=== PATIENT | male | born 1950 | race Caucasian/White ===

== ENCOUNTER 2017-01-18 19:01 | Emergency (ER) | payer OTHER ==
[2017-01-18] MEDS ORDERED: ROCEPHIN 1 Gm-D5w 50 ml Bag** 50 ML IV ONE ×2 (19:50→20:05)
--- NOTE | 2017-01-18 19:51 | ERPHSYRPT ---
- History of Present Illness Time Seen by Provider: 01/18/17 19:37 Source: patient Exam Limitations: no limitations Patient Subjective Stated Complaint: pt states he tripped over an electrical cord and fell on his knes and face. denies loc. Triage Nursing Assessment: pt alert and oriented, answers questions approp. pt ambulatory with steady gait noted. respirations nonlabored with lungs cta. skin pink warm and dry. small abrasions to bilat knees. abrasion to bridge of nose and lac above upper lip. lac below lt eye. abrasion to lt side of nose and to chin. 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 PT DENIES NAUSEA, VOMITING, CHEST PAIN, SHORTNESS OF AIR, ABDOMINAL PAIN, TINGLING/NUMBNESS, WEAKNESS. Allergies/Adverse Reactions: adhesive tape Adverse Reaction (Verified 01/18/17 19:43) Home Medications: Atorvastatin Calcium [Lipitor] 80 mg PO HS 09/23/15 [History] Calcium Carbonate/Vitamin D3 [Calcium 600 + D Tablet] 1 each PO HS 09/23/15 [ History] Furosemide [Lasix] 20 mg PO DAILY 09/23/15 [History] Glipizide 10 mg [Glucotrol 10 MG] 10 mg PO BID 09/23/15 [History] Levothyroxine Sodium [Synthroid] 75 mcg PO DAILY 09/23/15 [History] Lisinopril [Zestril] 2.5 mg PO DAILY 09/23/15 [History] Metformin HCl 1000 mg [Glucophage 1000 MG] 500 mg PO QID 09/23/15 [History] Pantoprazole Sodium [Protonix] 40 mg PO HS 09/23/15 [History] Sitagliptin Phosphate [Januvia] 100 mg PO HS 09/23/15 [History] Tamsulosin HCl 0.4 mg [Flomax 0.4 MG] 0.4 mg PO BID 09/23/15 [History] Hydrocodone Bit/Acetaminophen [[place] 5-325 Tablet] 2 each PO Q6HPRN PRN [History] Hx Tetanus, Diphtheria Vaccination/Date Given: (unknown) Hx Influenza Vaccination/Date Given: Yes Hx Pneumococcal Vaccination/Date Given: Yes Immunizations Up to Date: Yes - Review of Systems Ears, Nose, & Throat: Other (FACIAL PAIN TODAY) Respiratory: No Dyspnea Cardiac: No Chest Pain Abdominal/Gastrointestinal: No Abdominal Pain, No Vomiting Musculoskeletal: Neck Pain (TODAY), Joint Pain (BILATERAL KNEE PAIN TODAY), No Back Pain All Other Systems: Reviewed and Negative - Past Medical History Pertinent Past Medical History: Yes Neurological History: No Pertinent History ENT History: No Pertinent History Cardiac History: No Pertinent History Respiratory History: No Pertinent History Endocrine Medical History: Diabetes Type II, Hypothyroidism Musculoskeletal History: Arthritis GI Medical History: GERD History: No Pertinent History Psycho-Social History: No Pertinent History Male Reproductive Disorders: Prostate Cancer Other Medical History: Torn left rotator cuff - Past Surgical History Past Surgical History: Yes Neuro Surgical History: No Pertinent History Cardiac: No Pertinent History Respiratory: No Pertinent History Gastrointestinal: Appendectomy Genitourinary: No Pertinent History Musculoskeletal: Orthopedic Surgery Male Surgical History: No Pertinent History Other Surgical History: tonsillectomy. Right arm tumor removal. finger surgery - Social History Smoking Status: Never smoker Exposure to second hand smoke: Yes Drug Use: none Patient Lives Alone: Yes Significant Family History: no pertinent family hx - Nursing Vital Signs Nursing Vital Signs: Initial Vital Signs Temperature 97.9 F Temperature Source Oral Pulse Rate 78 Respiratory Rate 18 Blood Pressure [] 134/70 Pain Intensity 2 - Kenneth Coma Score Best Eye Response (Kenneth): (4) open spontaneously Best Verbal Response (Kenneth): (5) oriented Best Motor Response ([place]): (6) obeys commands Kenneth Total: 15 - Physical Exam General Appearance: alert Head Injury: lacerations (1 CM VERTICAL LACERATION TO LEFT OF MIDLINE BELOW NOSE ; ABRASION TO NASAL BRIDGE AND BELOW LEFT EYE; LEFT PERIORBITAL HEMATOMA.) Eye Exam: PERRL/EOMI ENT Exam: airway nml, hearing grossly normal, No clear fluid (ears), No clear fluid (nose) Neck Exam: trachea midline, tenderness (MILD POSTERIOR TENDERNESS) Respiratory/Chest Exam: normal breath sounds, No chest tenderness Cardiovascular Exam: normal heart sounds Gastrointestinal Exam: soft, normal bowel sounds, No tenderness Back Exam: normal range of motion, No vertebral tenderness Extremity Exam: normal range of motion, tenderness (MILD TENDERNESS OVER ABRASIONS OF BOTH KNEES WITH MILD EDEMA RIGHT > LEFT.) Peripheral Pulses: dorsalis-pedis (R): 2+, dorsalis-pedis (L): 2+ Neurologic Exam: alert, cooperative, sensation nml, No motor deficits, No slurred speech SpO2 Interpretation: normal SpO2: 97 Oxygen Delivery: Room Air Procedures - Laceration/Wound Repair Face Wound Location: face Wound Length (cm): 1 Wound's Depth, Shape: superficial Wound Explored: clean Irrigated: No (WASHED WITH STERILE WATER) Hibiclens Prep: Yes Anesthesia: 1% Lidocaine Volume Anesthetic (ccs): 1 Wound Repaired With: sutures Suture Size/Type: 5-0, prolene Number of Sutures: 3 Layer Closure?: No - Course Nursing assessment & vital signs reviewed: Yes - Radiology Exams Right Knee X-ray Interpretation: Interpreted by me, No Fracture Left Knee X-ray Interpretation: Interpreted by me, No Fracture - CT Exams Head CT Interpretation: Discussed w/radiologist (NEGATIVE CT HEAD.) Cervical Spine CT Interpretation: Discussed w/radiologist (STABLE NORMAL CT C-SPINE COMPARED TO 05/09/12.) Maxillofacial Bones CT Interpretation: Discussed w/radiologist (NEGATIVE CT FACIAL BONE. VERY MINIMAL ETHMOID SINUS DISEASE.) Ordered Tests: Active Orders 24 hr Category Date Time Status IV Insertion STAT Care 01/18/17 19:49 Active CERVICAL SPINE WO CONTRAST [CT] Stat Exams 01/18/17 19:47 Taken FACIAL BONES WO CONTRAST [CT] Stat Exams 01/18/17 19:47 Taken HEAD WITHOUT CONTRAST [CT] Stat Exams 01/18/17 19:47 Taken KNEE (3 VIEWS) Stat Exams 01/18/17 19:47 Taken KNEE (3 VIEWS) Stat Exams 01/18/17 19:48 Taken AMYLASE Stat Lab 01/18/17 20:03 Completed CBC W DIFF Stat Lab 01/18/17 20:03 Completed CMP Stat Lab 01/18/17 20:03 Completed LIPASE Stat Lab 01/18/17 20:03 Completed UA Stat Lab 01/18/17 19:49 Ordered Medication Summary Generic Name Dose Route Start Last Admin Trade Name Freq PRN Reason Stop Dose Admin Sodium Chloride 1,000 mls @ 100 mls/hr 01/18/17 20:00 01/18/17 20:06 Sodium Chloride 0.9% 1000 Ml IV 02/17/17 19:59 100 mls/hr .Q10H TRACY Administration Sodium Chloride 1,000 mls @ 999 mls/hr 01/18/17 21:38 01/18/17 21:49 Sodium Chloride 0.9% 1000 Ml IV 01/18/17 22:38 999 mls/hr .Q1H1M STA Administration Discontinued Medications Generic Name Dose Route Start Last Admin Trade Name Amy PRN Reason Stop Dose Admin Ceftriaxone Sodium/Dextrose 50 mls @ 100 mls/hr 01/18/17 19:50 01/18/17 20:06 Rocephin 1 Gm-D5w 50 Ml Bag IV 01/18/17 20:19 100 mls/hr STAT ONE Administration Sodium Chloride Confirm 01/18/17 20:05 Sodium Chloride 0.9% 1000 Ml Administered 01/18/17 20:06 Dose 1,000 mls @ ud .ROUTE .STK-MED ONE Ceftriaxone Sodium/Dextrose Confirm 01/18/17 20:05 Rocephin 1 Gm-D5w 50 Ml Bag Administered 01/18/17 20:06 Dose 50 mls @ ud IV .STK-MED ONE Lidocaine HCl Confirm 01/18/17 21:52 Xylocaine 1% Hcl 20 Ml Mdv Administered 01/18/17 21:53 Dose 5 ml .ROUTE .STK-MED ONE Lidocaine HCl 5 ml 01/18/17 22:07 01/18/17 22:08 Xylocaine 1% Hcl 20 Ml Mdv IJ 01/18/17 22:08 5 ml STAT ONE Administration Lab/Rad Data: Laboratory Result Diagrams 01/18/17 20:03 01/18/17 20:03 Laboratory Results 01/18/17 01/18/17 Range/Units 20:03 20:03 WBC 10.3 (4.0-10.5) K/mm3 RBC 4.41 (4.1-5.6) M/mm3 Hgb 11.1 L (12.5-18.0) gm/dl Hct 34.8 L (42-50) % MCV 78.9 (78-100) fl MCH 25.1 L (26-32) pg MCHC 31.9 L (32-36) g/dl RDW 16.4 H (11.5-14.0) % Plt Count 309 (150-450) K/mm3 MPV 10.0 H (6-9.5) fl Gran % 77.9 H (36.0-66.0) % Lymphocytes % 12.3 L (24.0-44.0) % Monocytes % 8.2 (0.0-12.0) % Eosinophils % 1.2 (0.00-5.0) % Basophils % 0.4 (0.0-0.4) % Basophils # 0.04 (0-0.4) Sodium 141 (136-145) mEq/L Potassium 4.2 (3.5-5.1) mEq/L Chloride 105 (98-107) mEq/L Carbon Dioxide 25.1 (21-32) mEq/L Anion Gap 15.4 H (5-15) MEQ/L BUN 28 H (9-20) mg/dL Creatinine 1.45 H (0.55-1.30) mg/dl Estimated GFR 52 ML/MIN Glucose 187 H (70-110) MG/DL Calcium 9.2 (8.5-10.1) mg/dL Total Bilirubin 0.2 (0.2-1.0) mg/dL AST 13 L (15-37) U/L ALT 23 (12-78) U/L Alkaline Phosphatase 64 (46-116) U/L Serum Total Protein 6.6 (6.4-8.2) gm/dL Albumin 3.3 L (3.4-5.0) g/dL Amylase 64 (25-115) U/L Lipase 336 (73-393) U/L - Departure Time of Disposition: 22:16 Departure Disposition: Home Clinical Impression: FALL, FACIAL ABRASIONS/CONTUSION, 1 CM LACERATION OF FACE, BILATERAL KNEE CONTUSIONS, CERVICAL STRAIN, DM, HYPOTHYROIDISM, ARTHRITIS, GERD Condition: Fair Critical Care Time: No Referrals: JENNIFER LOPEZ [Primary Care Provider] - Instructions: Prevent Falls, Contusion, Care for a Surgical Wound, Whiplash Additional Instructions: FOLLOW UP WITH PRIVATE DOCTOR TOMORROW. KEEP CLEAN & DRY. HAVE SUTURES REMOVED IN 10 DAYS. WEAR SOFT C-COLLAR FOR 2 WEEKS ONLY WHILE AWAKE. Prescriptions: Tramadol HCl 50 mg [Ultram 50 mg] 50 mg PO Q4H PRN PRN #14 tablet PRN Reason: Pain Cephalexin Monohydrate [Keflex] 500 mg PO TID #30 capsule
[2017-01-18] MEDS ORDERED: Sodium Chloride 0.9% 1000 ML 1,000 ML IV SCH (20:00)
[2017-01-18] MEDS ORDERED: Sodium Chloride 0.9% 1000 ML 1,000 ML ONE (20:05)
[2017-01-18 20:08] LABS: BASOPHIL % 0.4 % (0.0-0.4); Eosinophil % 1.2 % (0.00-5.0); Granulocytes % 77.9 % (36.0-66.0); Lymphocytes % 12.3 % (24.0-44.0); Mean Cell Volume 78.9 fl (78-100); Monocytes % 8.2 % (0.0-12.0); Platelet Count 309 K/mm3 (150-450); Red Blood Count 4.41 M/mm3 (4.1-5.6); Red Cell Distribution Width 16.4 % (11.5-14.0); White Blood Count 10.3 K/mm3 (4.0-10.5)
[2017-01-18 20:14] LABS: Mean Corpuscular Hemoglobin 25.1 pg (26-32)
[2017-01-18 20:34] LABS: ALBUMIN 3.3 g/dL (3.4-5.0); ANION GAP 15.4 MEQ/L (5-15); BILIRUBIN,TOTAL 0.2 mg/dL (0.2-1.0); Carbon Dioxide 25.1 mEq/L (21-32); Potassium 4.2 mEq/L (3.5-5.1); Total Protein 6.6 gm/dL (6.4-8.2)
[2017-01-18] MEDS ORDERED: Sodium Chloride 0.9% 1000 ML 1,000 ML IV STA (21:38)
[2017-01-18] MEDS ORDERED: XYLOCAINE 1% HCL 20 ML MDV ONE (21:52)
[2017-01-18] MEDS ORDERED: XYLOCAINE 1% HCL 20 ML MDV IJ ONE (22:07)
[2017-01-18] MEDS ORDERED: TENIVAC VIAL IM ONE ×2 (22:17→22:20)
[2017-01-18 23:08] VITALS: BP 134/71; PULSE 79; O2SAT 98
--- NOTE | 2017-01-19 08:50 | XRAY ---
Indication: Pain following fall. Multiple contiguous axial images obtained through the head without contrast. Comparison: None Age-appropriate global atrophy. No acute intracranial hemorrhage, abnormal extra-axial fluid collection, or mass effect. Fourth ventricle is midline without hydrocephalus. Bony calvarium intact. Visualized paranasal sinuses and mastoid air cells are pneumatized and clear. Impression: No acute intracranial abnormalities. CT DI 47.12
--- NOTE | 2017-01-19 08:52 | XRAY ---
Indication: Posterior neck pain following fall. Multiple contiguous axial images obtained through the cervical spine. Sagittal and coronal reformatted images obtained. Comparison: May 09, 2012. Axial images again negative for acute fracture, suspicious bony lesions, or spinal canal stenosis. Minimal multilevel bilateral degenerative facet arthropathy. Sagittal and coronal reformatted images demonstrates normal alignment with disc spaces preserved. No acute compression fracture, subluxation, or jumped facet. Normal-appearing craniocervical junction. Visualized noncontrasted soft tissues including base of the brain and lung apices are unremarkable. Impression: Again negative CT cervical spine. CT DI 88.21
--- NOTE | 2017-01-19 08:58 | XRAY ---
Indication: Bilateral facial and nasal pain following fall. Multiple contiguous axial images obtained through the facial bones. Sagittal and coronal reformatted images obtained. Comparison: None Multiple bilateral dental amalgams produces beam artifact limiting these levels. No acute fracture, suspicious bony lesions, or radiopaque foreign body. Orbits including roof, ferraro, and floor are intact. Minimal nasal septal deviation to the left. Minimal mucosal thickening of both ethmoid sinuses. Remaining paranasal sinuses and mastoid air cells are pneumatized and clear. Remaining visualized noncontrasted soft tissues unremarkable. CT head and CT cervical spine reported separately. Impression: Minimal paranasal sinus disease. Remaining CT facial bones study is negative. CT DI 59.47
--- NOTE | 2017-01-19 09:16 | XRAY ---
Indication: Pain following fall. Comparison: None 3 views of the left knee intact with minimal medial compartment joint space narrowing and scattered vascular calcifications. No other bony, articular, or soft tissue abnormalities.
--- NOTE | 2017-01-19 09:17 | XRAY ---
Indication: Pain following fall. Comparison: None 3 views of the right knee intact with minimal medial compartment joint space narrowing, scattered vascular calcifications, and tiny spurring of the patella and tibial tuberosity. No other bony, articular, or soft tissue abnormalities.
== END 2017-01-18 23:08 | disposition home or self-care (01) ==
LOC: ED 19:01
PROC: 0HQ1XZZ Repair Face Skin, External Approach (ICD-10-PCS; principal; 2017-01-18)
DX: S01.81XA Laceration without foreign body of other part of head, initial encounter (principal); S00.81XA Abrasion of other part of head, initial encounter; S00.83XA Contusion of other part of head, initial encounter; S80.02XA Contusion of left knee, initial encounter; S80.01XA Contusion of right knee, initial encounter; S16.1XXA Strain of muscle, fascia and tendon at neck level, initial encounter; E11.9 Type 2 diabetes mellitus without complications; E03.9 Hypothyroidism, unspecified; M19.90 Unspecified osteoarthritis, unspecified site; K21.9 Gastro-esophageal reflux disease without esophagitis; W01.0XXA Fall on same level from slipping, tripping and stumbling without subsequent striking against object, initial encounter; Y99.0 Civilian activity done for income or pay
CPT/HCPCS: 12011; 36000; 36415; 70450; 70486; 72125; 73562; 80053; 82150; 83690; 85025; 90471; 90714; 96360; 96361; 99284; J0696; L0120; L0172

== ENCOUNTER 2018-11-08 09:09 | Day surgery (SDC) | payer MEDICARE, OTHER ==
[2018-11-08] MEDS ORDERED: DIPRIVAN 200 MG/20 ML IV ONE (09:10)
[2018-11-08] MEDS ORDERED: Marcaine 0.5% SDV 10 ML IJ ONE (09:10)
[2018-11-08] MEDS ORDERED: Depo-Medrol 40 MG/ML IM ONE (09:10)
--- NOTE | 2018-11-08 12:30 | XRAY ---
Indication: Left SI injection Intraoperative fluoroscopy was provided for 9 seconds. 2 digital spot images submitted for interpretation demonstrates a needle tip projecting over the inferior left SI joint. Correlate with intraoperative findings/report. Incidental partially visualized left hip arthroplasty.
--- NOTE | 2018-11-08 12:38 | XRAY ---
9 seconds fluoroscopy time in surgery for left S-I joint injection.
[2018-11-08] MEDS ORDERED: Lactated Ringers 1,000 ML IV ONE (14:46)
== END 2018-11-08 11:00 | disposition home or self-care (01) ==
LOC: SDC-PAIN 09:09
PROVIDERS: ATTEND Psychiatry & Neurology Pain Medicine
DX: M53.3 Sacrococcygeal disorders, not elsewhere classified (principal)
CPT/HCPCS: 27096; 72020; 77002; 82962; J1030; J2704; G0260

== ENCOUNTER 2020-04-09 07:58 | Day surgery (SDC) | payer MEDICARE, OTHER ==
[2020-04-09] MEDS ORDERED: Marcaine 0.5% SDV 10 ML IJ ONE (07:59)
[2020-04-09] MEDS ORDERED: Depo-Medrol 40 MG/ML IM ONE (07:59)
[2020-04-09] MEDS ORDERED: DIPRIVAN 200 MG/20 ML IV ONE (09:06)
[2020-04-09] MEDS ORDERED: Ketamine HCl 50 MG/ML ONE (09:07)
[2020-04-09] MEDS ORDERED: Lactated Ringers 1,000 ML IV ONE (15:16)
--- NOTE | 2020-04-09 16:30 | XRAY ---
9 seconds fluoroscopy time in surgery for left SI joint injection.
--- NOTE | 2020-04-12 18:43 | XRAY ---
Indication: Left SI joint injection. Intraoperative fluoroscopy was provided for 9 seconds. Frontal and lateral digital C-arm images reveal the needle tip to be in the projection of the inferior left SI joint. A small portion of a left hip arthroplasty is seen at the peripheral [id number].
== END 2020-04-09 09:53 | disposition home or self-care (01) ==
LOC: SDC-PAIN 07:58
PROVIDERS: ATTEND Psychiatry & Neurology Pain Medicine
DX: M46.1 Sacroiliitis, not elsewhere classified (principal); E11.9 Type 2 diabetes mellitus without complications; I10 Essential (primary) hypertension; Z79.899 Other long term (current) drug therapy
CPT/HCPCS: 72020; 77002; 82962; G0260; 27096; J1030; J2704

== ENCOUNTER 2020-05-21 09:03 | Day surgery (SDC) | payer MEDICARE, OTHER ==
[~2020-05-21 09:03] MED LIST: DIPRIVAN 200 MG/20 ML IV ONE; Ketamine HCl 50 MG/ML ONE
[2020-05-21] MEDS ORDERED: Marcaine 0.5% SDV 10 ML IJ ONE (09:04)
[2020-05-21] MEDS ORDERED: Depo-Medrol 40 MG/ML IM ONE (09:04)
--- NOTE | 2020-05-21 11:39 | XRAY ---
Indication: Left hip bursa injection. Intraoperative fluoroscopy was provided for 11 seconds. Single digital spot image obtained prone demonstrates needle tip just lateral to the left greater trochanter. Small amount of contrast injected for needle tip placement. Correlate with intraoperative findings/report. Incidental partially visualized left hip arthroplasty.
--- NOTE | 2020-05-21 11:41 | XRAY ---
Indication: Left SI joint injection. Intraoperative fluoroscopy was provided for 9 seconds. 2 digital spot images submitted for interpretation demonstrates posterior needle tip projecting over the inferior left SI joint. Correlate with intraoperative findings/report. Incidental partially visualized left hip arthroplasty.
--- NOTE | 2020-05-21 11:49 | XRAY ---
9 seconds fluoroscopy time in surgery for left SI joint injection.
--- NOTE | 2020-05-21 11:49 | XRAY ---
11 seconds fluoroscopy time in surgery for left greater trochanter injection.
[2020-05-21] MEDS ORDERED: Lactated Ringers 1,000 ML IV ONE (16:34)
== END 2020-05-21 10:30 | disposition home or self-care (01) ==
LOC: SDC-PAIN 09:03
PROVIDERS: ATTEND Psychiatry & Neurology Pain Medicine
DX: M46.1 Sacroiliitis, not elsewhere classified (principal); M70.62 Trochanteric bursitis, left hip; E11.9 Type 2 diabetes mellitus without complications; I10 Essential (primary) hypertension; F41.8 Other specified anxiety disorders; Z79.899 Other long term (current) drug therapy
CPT/HCPCS: 20610; 72020; 73501; 77002; 82962; G0260; 27096; J1030; J2704; Q9966

== ENCOUNTER 2020-08-11 10:23 | Day surgery (SDC) | payer MEDICARE, OTHER ==
--- NOTE | 2020-08-11 08:55 | HP ---
DATE OF SURGERY: 08/11/2020 HISTORY OF PRESENT ILLNESS: The patient is a 70 year old with persistent indurated left abdomen the last two months. Given his persistent discomfort and induration bowel mucosa, fat necrosis, lipoma or change from injections in the area, he desires excision of the area. There is a small chance it could be a hernia given location but likely could be some other subcutaneous nodule, lipoma or fat necrosis. PAST MEDICAL HISTORY: Myalgia, diabetes, hypothyroidism, arthritis, gastroesophageal reflux disease. PAST SURGICAL HISTORY: Hip replacement in the past. Tonsillectomy. Appendectomy. Prostate cancer with radiation seeds in the past. Heart cath. MEDICATIONS: Metoprolol, Jardiance, atorvastatin, Flomax, fluconazole, Lasix, Levemir, Lisinopril, metformin, NovoLog, pantoprazole, ferrous sulfate, Synthroid, vitamin B-12, vitamin D3. ALLERGIES: SENSITIVE TO MORPHINE. ADHESIVE TAPE. FAMILY HISTORY: Negative in regards to this problem. SOCIAL HISTORY: No smoking or alcohol abuse. REVIEW OF SYSTEMS: Fourteen systems reviewed. No chest pain or palpitations. Other systems negative or noncontributory as above and per preadmission questionnaire. PHYSICAL EXAMINATION: GENERAL: No acute distress. HEENT: Sclerae nonicteric. NECK: No JVD. CHEST: Equal excursion, nonlabored breathing. CVS: Regular rate and rhythm. ABDOMEN: Soft. Tender area in left abdominal wall again whether lipoma or some fat necrosis or other changes from insulin injections or whether less likely possible occult hernia is unclear. Either way given his symptoms, I feel he will benefit from exploration. EXTREMITIES: No significant edema. NEURO: Alert, oriented, moving extremities symmetrically. PSYCH: Appropriate mood and affect. IMPRESSION: Persistent indurated area left abdominal wall. He needs abdominal wall exploration, excision of nodule or lipoma possible hernia repair if identified, possible mesh. Risks and benefits or bleeding or infection, risk of hematoma or seroma formation with hernia, risk of hernia recurrence, risk of mesh infection possible removal, risk of adhesion, scar formation or obstruction. Remote risk of mesh fracture or failure if repaired with mesh possibly requiring other procedures, ongoing morbidity. He understands if there is lipoma or fat necrosis there is a possibility what we excise will not recur but he could get similar change adjacent or elsewhere on his body. General risk of anesthesia, deep venous thrombosis, pulmonary embolism, pneumonia, risk of cardiopulmonary event but not limited to. Will proceed with abdominal wall exploration, excision and biopsy of abdominal wall nodule or lipoma, possible hernia repair with possible mesh as an outpatient.
[~2020-08-11 10:23] MED LIST changes: +BRIDION 200MG/2ML IV ONE; -DIPRIVAN 200 MG/20 ML IV ONE; -Ketamine HCl 50 MG/ML ONE; +Lactated Ringers 1,000 ML IV ONE; +Sensorcaine 0.25% 10 ML ONE
[2020-08-11] MEDS ORDERED: Lactated Ringers 1,000 ML IV ONE (10:39)
[2020-08-11] MEDS ORDERED: Lactated Ringers 1,000 ML IV SCH (11:00)
[2020-08-11 11:09] LABS: BASOPHIL % 0.5 % (0.0-0.4); Basophil (Absolute #) 0.04 (0-0.4); Eosinophil % 2.5 % (0.00-5.0); Eosinophil (Absolute #) 0.21 (0-0.5); Hematocrit 40.9 % (42-50); Hemoglobin 12.9 gm/dl (12.5-18.0); Lymphocyte (Absolute #) 1.31 (1.0-4.6); Lymphocytes % 15.7 % (24.0-44.0); Mean Corpuscular Hemoglobin 26.2 pg (26-32); Mean Corpuscular Hgb Concent. 31.5 g/dl (32-36); Mean Platelet Volume 10.3 fl (7.5-11.0); Monocyte (Absolute #) 0.68 (0.0-1.3); Monocytes % 8.2 % (0.0-12.0); Neutrophil % 73.1 % (36.0-66.0); Platelet Count 307 K/mm3 (150-450); Red Blood Count 4.93 M/mm3 (4.1-5.6); Red Cell Distribution Width 16.7 % (11.5-14.0); White Blood Count 8.3 K/mm3 (4.0-10.5)
[2020-08-11 11:20] LABS: ANION GAP 11.5 MEQ/L (5-15); Calcium 9.2 mg/dL (8.4-10.2); Creatinine 1 1.43 mg/dL (0.66-1.25); EST GLOMERULAR FILTRATION RATE 52.1 ML/MIN; Potassium 4.2 mmol/L (3.5-5.1)
[2020-08-11] MEDS ORDERED: SUBLIMAZE 250 MCG/5 ML ONE (11:57)
[2020-08-11] MEDS ORDERED: DIPRIVAN 200 MG/20 ML IV ONE (11:57)
[2020-08-11] MEDS ORDERED: Zemuron 100 MG/10 ML ONE (11:57)
[2020-08-11] MEDS ORDERED: Versed 2 MG/2 ML Injection ONE (11:57)
[2020-08-11] MEDS ORDERED: Zofran 4 MG/2 ML VIAL ONE (12:04)
[2020-08-11] MEDS ORDERED: BRIDION 200MG/2ML IV ONE (12:07)
[2020-08-11] MEDS ORDERED: KEFZOL 1 GM ONE (13:15)
[2020-08-11] MEDS ORDERED: SUBLIMAZE 100 MCG/2 ML ONE (13:37)
--- NOTE | 2020-08-11 13:39 | OP ---
SURGERY DATE/TIME: 08/11/2020 1225 PREOPERATIVE DIAGNOSIS: Persistent indurated, tender abdominal wall nodule. POSTOPERATIVE DIAGNOSIS: Abdominal wall lipomatous density with area of inflammatory changes or necrosis, path pending (8 cm with margins). PROCEDURE: Abdominal wall exploration, excision and biopsy of nodule, possible umbilical herniorrhaphy. SURGEON: Dr. Kaushik Bell. ANESTHESIA: General. ESTIMATED BLOOD LOSS: Minimal. INDICATIONS: As noted above. Risks and benefits explained in detail and not limited to and consent obtained. DESCRIPTION OF PROCEDURE AND FINDINGS: The patient is taken to the operating room. The site had been marked in preoperative holding area. General anesthesia introduced. Abdomen prepped and draped in usual sterile fashion. After official time out and no disagreement with planned procedure, a transverse incision is made around the skin overlying the firm area. Dissection carried down. It appeared to be a denser lipomatous density much denser than normal subcutaneous fat surrounding the area this was dissected down deep to the fascia. There did not appear to be any evidence of any underlying hernia. The indurated area whether inflammatory changes, necrosis or hemorrhage is unclear and was sent off for pathology the area with its margin included about 8 cm, passed off for pathology. The patient was quite vascular and had several small pulsatile perforators controlled with 3-0 Vicryl suture ligature and appeared to have good hemostasis. The wound irrigated out with copious amounts of sterile saline to avoid the need for drain placement. There was a large potential space underneath here. The subcu was tacked down to level of fascia with 3-0 Vicryl. Skin closed with 4-0 Vicryl in subcuticular fashion. Steri-Strips, sterile pressure dressing and abdominal binder was given. The patient tolerated the procedure well. There were no immediate complications. There is no family here to discuss the findings with.
[2020-08-11 15:01] VITALS: BP 138/74; PULSE 88; O2SAT 96
== END 2020-08-11 14:55 | disposition home or self-care (01) ==
LOC: SDC 10:23
PROVIDERS: ATTEND Surgery
DX: D17.1 Benign lipomatous neoplasm of skin and subcutaneous tissue of trunk (principal); E11.9 Type 2 diabetes mellitus without complications; E03.9 Hypothyroidism, unspecified; K21.9 Gastro-esophageal reflux disease without esophagitis; I10 Essential (primary) hypertension; I25.10 Atherosclerotic heart disease of native coronary artery without angina pectoris; Z79.899 Other long term (current) drug therapy
CPT/HCPCS: 36415; 80048; 85025; 88305; 93005; J0690; J2250; J2405; J2704; J3010; L0625

== ENCOUNTER 2021-05-27 14:00 | Day surgery (SDC) | payer MEDICARE, OTHER | END 2021-05-27 14:15 | disposition home or self-care (01) | LOC: SDC-PAIN 14:00 | PROVIDERS: ATTEND Psychiatry & Neurology Pain Medicine | DX: Z53.09 Procedure and treatment not carried out because of other contraindication (principal); M46.1 Sacroiliitis, not elsewhere classified; E11.9 Type 2 diabetes mellitus without complications | CPT/HCPCS: 82947 ==

== ENCOUNTER 2021-06-03 14:24 | Observation (INO) | payer MEDICARE, OTHER ==
[2021-06-03] MEDS ORDERED: Sodium Chloride 0.9% 1000 ML 1,000 ML IV STA (14:51)
--- NOTE | 2021-06-03 14:57 | ERPHSYRPT ---
- History of Present Illness Time Seen by Provider: 06/03/21 14:26 Source: patient Exam Limitations: no limitations Patient Subjective Stated Complaint: C/O being dizzy, light headed, cool, clammy. States he feels like he does when his blood sugar is low. He states he is starting to feel better since laying down in bed here. Is still a little light headed. Triage Nursing Assessment: Accucheck WNL. Patient is alert and oriented. Wearing a mask upon entry to ER. No c/o chest pain or SOB. Physician History: 70 years old male with history of diabetes mellitus, hypertension, hyperlipidemia presented in the ER with chief complaint of sudden onset lightheadedness while he was sitting in the ER waiting area to have his cortisone shot for hip pain. Patient reports feeling sweaty, cold clammy and feeling as if he was going to pass out. Reports having similar symptoms in the past with hypoglycemia. On arrival in the ER his blood sugar is 113. Denies any chest pain palpitations or shortness of breath. Patient feels much better now but still weak all over without any focal weakness. Denies any blurry vision, numbness tingling or focal weakness. No speech disturbance. Timing/Duration: today, sudden, improved Severity: moderate Modifying Factors: Improves With: rest Associated Symptoms: denies symptoms Allergies/Adverse Reactions: morphine Allergy (Verified 06/03/21 14:44) unknown reaction adhesive tape Adverse Reaction (Intermediate, Verified 06/03/21 14:44) Blisters Home Medications: Atorvastatin Calcium [Lipitor] 80 mg PO HS 09/23/15 [History] Furosemide [Lasix] 20 mg PO DAILY 09/23/15 [History] Metformin HCl 1000 mg [Glucophage 1000 MG] 500 mg PO BID 09/23/15 [History] Pantoprazole Sodium [Protonix] 40 mg PO HS 09/23/15 [History] Tamsulosin HCl 0.4 mg [Flomax 0.4 MG] 0.4 mg PO BID 09/23/15 [History] lisinopriL [Zestril] 2.5 mg PO DAILY 09/23/15 [History] Aspirin 81 mg PO DAILY 02/13/20 [History] Calcium Carbonate/Vitamin D3 [Oyster Shell Calcium + D Tab] 1 each PO BID 02/13/20 [History] Cetirizine HCl 10 mg PO HS 02/13/20 [History] Empagliflozin [Jardiance] 25 mg PO HS 02/13/20 [History] Ferrous Sulfate 325 mg PO BID 02/13/20 [History] Fluticasone Propionate [Flonase Allergy Relief] 9.9 ml NS BID 02/13/20 [History] Insulin Aspart Prot/Insuln Asp [Novolog Mix 70-30 Flexpen] 20 unit SQ TIDWMEALS 02/13/20 [History] Insulin Detemir [Levemir] 40 unit SQ HS 02/13/20 [History] Levothyroxine Sodium 88 Mcg [Synthroid 88 Mcg] 100 mcg PO DAILY 02/13/20 [History] Metoprolol Tartrate 25 mg PO BID 02/13/20 [History] Cholecalciferol (Vitamin D3) [Vitamin D3] 50 mcg PO DAILY 02/20/20 [History] Cyanocobalamin (Vitamin B-12) [Vitamin B12] 2,500 mcg PO DAILY 02/20/20 [History] Oxycodone / APAP 10/325 mg [Oxycodone-Acetaminophen 10-325] 1 each PO DAILY PRN PRN 06/03/21 [History] Hx Tetanus, Diphtheria Vaccination/Date Given: (unknown) Hx Influenza Vaccination/Date Given: Yes Hx Pneumococcal Vaccination/Date Given: Yes Immunizations Up to Date: Yes Travel Risk - International Travel Have you traveled outside of the country in past 3 weeks: No - Coronavirus Screening Are you exhibiting any of the following symptoms?: No Close contact with a COVID-19 positive Pt in past 14-21 Days: No - Vaccine Status Have you recieved a Covid-19 vaccination: Yes Frog Farmer: Moderna - Vaccination Dates Date of 2cond Vaccination (if applicable): 01/29/2021 - Review of Systems Constitutional: Fatigue, Weakness Eyes: No Symptoms Ears, Nose, & Throat: No Symptoms Respiratory: No Symptoms Cardiac: No Symptoms Abdominal/Gastrointestinal: No Symptoms Genitourinary Symptoms: No Symptoms Musculoskeletal: Arthralgias Skin: No Symptoms Neurological: Dizziness Psychological: No Symptoms Endocrine: No Symptoms Hematologic/Lymphatic: No Symptoms Immunological/Allergic: No Symptoms - Past Medical History Pertinent Past Medical History: Yes Neurological History: No Pertinent History ENT History: No Pertinent History Cardiac History: Arrhythmia Respiratory History: No Pertinent History Endocrine Medical History: Diabetes Type II, Hypothyroidism Musculoskeletal History: Arthritis GI Medical History: GERD History: No Pertinent History Psycho-Social History: No Pertinent History Male Reproductive Disorders: Prostate Cancer Other Medical History: Left hip replacement 2017, heart "skips beats" - Past Surgical History Past Surgical History: Yes Neuro Surgical History: No Pertinent History Cardiac: No Pertinent History Respiratory: No Pertinent History Gastrointestinal: Appendectomy Genitourinary: No Pertinent History Musculoskeletal: Orthopedic Surgery Male Surgical History: No Pertinent History Other Surgical History: T & A. Right arm tumor removal. L finger surgery - Social History Smoking Status: Never smoker Exposure to second hand smoke: No Drug Use: none Patient Lives Alone: Yes Significant Family History: no pertinent family hx - Nursing Vital Signs Nursing Vital Signs: Initial Vital Signs Pulse Rate 78 06/03/21 14:33 Respiratory Rate 23 06/03/21 14:33 Blood Pressure 117/71 06/03/21 14:33 O2 Sat by Pulse Oximetry 95 06/03/21 14:33 Pain Scale Pain Intensity 0 - Physical Exam General Appearance: no apparent distress, alert Eye Exam: PERRL/EOMI, eyes nml inspection Ears, Nose, Throat Exam: normal ENT inspection, TMs normal, pharynx normal Neck Exam: normal inspection, non-tender, supple, full range of motion Respiratory Exam: normal breath sounds, lungs clear Cardiovascular Exam: regular rate/rhythm, normal heart sounds Gastrointestinal/Abdomen Exam: soft, normal bowel sounds, No tenderness Back Exam: normal inspection, normal range of motion Extremity Exam: normal inspection, normal range of motion, pelvis stable Neurologic Exam: alert, oriented x 3, cooperative, 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, normal mood/affect, nml cerebellar function, nml station & gait, sensation nml, No motor deficits, No sensory deficit, No motor weakness, No facial droop Skin Exam: normal color SpO2 Interpretation: normal SpO2: 95 O2 Delivery: Room Air - Course EKG Interpreted by Me: RATE (73), Sinus Rhythm, NORMAL AXIS, NORMAL INTERVALS, NORMAL QRS Ordered Tests: Medication Summary Discontinued Medications Generic Name Dose Route Start Last Admin Trade Name Freq PRN Reason Stop Dose Admin Acetaminophen 650 mg 06/03/21 20:02 Tylenol 325 Mg PO 07/03/21 20:01 Q4H PRN PRN PAIN AND/OR FEVER Albuterol/Ipratropium 3 ml 06/03/21 20:02 Duoneb 0.5-3 Mg/3 Ml Neb IH 07/03/21 20:01 Q4HPRN PRN SHORTNESS OF BREATH/WHEEZING Calcium Carbonate 1 tab 06/03/21 22:12 06/03/21 23:04 Calcium 500mg W/Vit D Tablet PO 06/03/21 22:13 1 tab BID STA Administration Fluticasone Propionate 0.5 gm 06/03/21 22:45 06/03/21 23:05 Flonase Nasal NS 06/03/21 22:46 0.5 gm DAILY STA Administration Sodium Chloride 1,000 mls @ 999 mls/hr 06/03/21 14:51 06/03/21 16:44 Sodium Chloride 0.9% 1000 Ml IV 06/03/21 15:51 Infused .Q1H1M STA Infusion Sodium Chloride Confirm 06/03/21 15:21 Sodium Chloride 0.9% 1000 Ml Administered 06/03/21 15:22 Dose 1,000 mls @ ud .ROUTE .STK-MED ONE Potassium Chloride/Sodium Chloride 1,000 mls @ 100 mls/hr 06/03/21 20:02 06/03/21 23:03 Sodium Chloride 0.9% W/ 20 Meq Kcl/Liter IV 07/03/21 20:01 100 mls/hr .Q10H TRACY Administration Potassium Chloride/Sodium Chloride Confirm 06/03/21 22:56 Sodium Chloride 0.9% W/ 20 Meq Kcl/Liter Administered 06/03/21 22:57 Dose 1,000 mls @ ud IV .STK-MED ONE Insulin Glargine 40 unit 06/03/21 22:20 06/03/21 23:30 Lantus Insulin SQ 06/03/21 22:21 Not Given HS STA Insulin Glargine 20 unit 06/03/21 22:20 06/03/21 23:04 Lantus Insulin SQ 06/03/21 22:21 20 unit HS STA Administration Insulin Human Lispro 0 unit 06/03/21 20:02 Humalog SQ 07/03/21 20:01 UD PRN HYPERGLYCEMIA Levothyroxine Sodium 88 mcg 06/04/21 06:00 06/04/21 07:43 Synthroid 88 Mcg PO 06/04/21 06:01 88 mcg QAM@0700 ONE Administration Loratadine 10 mg 06/03/21 22:13 06/03/21 23:04 Claritin 10 Mg PO 06/03/21 22:14 10 mg HS STA Administration Metoprolol Tartrate 25 mg 06/03/21 22:23 06/03/21 23:05 Lopressor 25mg Tab PO 06/03/21 22:24 25 mg STAT ONE Administration Oxycodone/Acetaminophen 1 tab 06/03/21 22:24 06/04/21 01:45 Oxycodone-Acetaminophen 10-325 PO 06/09/21 09:59 1 tab DAILY PRN Administration PAIN Pantoprazole Sodium 40 mg 06/04/21 10:00 Protonix 40 Mg Iv IV 07/04/21 09:59 Q24H10 TRACY Simvastatin 80 mg 06/03/21 22:09 06/03/21 23:04 Zocor 20mg PO 06/03/21 22:10 80 mg HS STA Administration Tamsulosin HCl 0.4 mg 06/03/21 22:26 06/03/21 23:05 Flomax 0.4 Mg PO 06/03/21 22:27 0.4 mg BID STA Administration Lab/Rad Data: Laboratory Result Diagrams 06/03/21 14:45 06/03/21 14:45 Laboratory Results 06/03/21 06/03/21 06/03/21 Range/Units 18:06 17:48 17:08 WBC (4.0-10.5) K/mm3 RBC (4.1-5.6) M/mm3 Hgb (12.5-18.0) gm/dl Hct (42-50) % MCV (78-100) fl MCH (26-32) pg MCHC (32-36) g/dl RDW (11.5-14.0) % Plt Count (150-450) K/mm3 MPV (7.5-11.0) fl Gran % (36.0-66.0) % Eos # (Auto) (0-0.5) Absolute Lymphs (auto) (1.0-4.6) Absolute Monos (auto) (0.0-1.3) Lymphocytes % (24.0-44.0) % Monocytes % (0.0-12.0) % Eosinophils % (0.00-5.0) % Basophils % (0.0-0.4) % Absolute Granulocytes (1.4-6.9) Basophils # (0-0.4) Sodium (137-145) mmol/L Potassium (3.5-5.1) mmol/L Chloride (98-107) mmol/L Carbon Dioxide (22-30) mmol/L Anion Gap (5-15) MEQ/L BUN (9-20) mg/dL Creatinine (0.66-1.25) mg/dL Estimated GFR ML/MIN Glucose (74-106) mg/dL POC Glucometer (74 to 106) mg/dL Lactic Acid 1.6 (0.4-2.0) Calcium (8.4-10.2) mg/dL Magnesium (1.6-2.3) mg/dL Total Bilirubin (0.2-1.3) mg/dL AST (17-59) U/L ALT (0-50) U/L Alkaline Phosphatase (38-126) U/L Troponin I 0.026 (0.000-0.034) ng/mL Serum Total Protein (6.3-8.2) g/dL Albumin (3.5-5.0) g/dL Urine Color (YELLOW) Urine Appearance (CLEAR) Urine pH (5-6) Ur Specific [place] (1.005-1.025) Urine Protein (Negative) Urine Ketones (NEGATIVE) Urine Blood (0-5) Francisco/ul Urine Nitrite (NEGATIVE) Urine Bilirubin (NEGATIVE) Urine Urobilinogen (0-1) mg/dL Ur Leukocyte Esterase (NEGATIVE) Urine RBC (Auto) (0-2) /HPF Urine Culture Reflexed (NO) Urine Glucose (NEGATIVE) mg/dL SARS-CoV-2 (PCR) NEGATIVE (NEGATIVE) 06/03/21 06/03/21 06/03/21 Range/Units 16:48 16:15 14:51 WBC (4.0-10.5) K/mm3 RBC (4.1-5.6) M/mm3 Hgb (12.5-18.0) gm/dl Hct (42-50) % MCV (78-100) fl MCH (26-32) pg MCHC (32-36) g/dl RDW (11.5-14.0) % Plt Count (150-450) K/mm3 MPV (7.5-11.0) fl Gran % (36.0-66.0) % Eos # (Auto) (0-0.5) Absolute Lymphs (auto) (1.0-4.6) Absolute Monos (auto) (0.0-1.3) Lymphocytes % (24.0-44.0) % Monocytes % (0.0-12.0) % Eosinophils % (0.00-5.0) % Basophils % (0.0-0.4) % Absolute Granulocytes (1.4-6.9) Basophils # (0-0.4) Sodium (137-145) mmol/L Potassium (3.5-5.1) mmol/L Chloride (98-107) mmol/L Carbon Dioxide (22-30) mmol/L Anion Gap (5-15) MEQ/L BUN (9-20) mg/dL Creatinine (0.66-1.25) mg/dL Estimated GFR ML/MIN Glucose (74-106) mg/dL POC Glucometer (74 to 106) mg/dL Lactic Acid 2.5 H (0.4-2.0) Calcium (8.4-10.2) mg/dL Magnesium (1.6-2.3) mg/dL Total Bilirubin (0.2-1.3) mg/dL AST (17-59) U/L ALT (0-50) U/L Alkaline Phosphatase (38-126) U/L Troponin I 0.018 (0.000-0.034) ng/mL Serum Total Protein (6.3-8.2) g/dL Albumin (3.5-5.0) g/dL Urine Color STRAW (YELLOW) Urine Appearance CLEAR (CLEAR) Urine pH 5.0 (5-6) Ur Specific [place] 1.006 (1.005-1.025) Urine Protein NEGATIVE (Negative) Urine Ketones NEGATIVE (NEGATIVE) Urine Blood NEGATIVE (0-5) Francisco/ul Urine Nitrite NEGATIVE (NEGATIVE) Urine Bilirubin NEGATIVE (NEGATIVE) Urine Urobilinogen NEGATIVE (0-1) mg/dL Ur Leukocyte Esterase NEGATIVE (NEGATIVE) Urine RBC (Auto) NONE (0-2) /HPF Urine Culture Reflexed NO (NO) Urine Glucose >=500 (NEGATIVE) mg/dL SARS-CoV-2 (PCR) (NEGATIVE) 06/03/21 06/03/21 06/03/21 Range/Units 14:45 14:45 14:32 WBC 10.1 (4.0-10.5) K/mm3 RBC 5.35 (4.1-5.6) M/mm3 Hgb 13.5 (12.5-18.0) gm/dl Hct 42.6 (42-50) % MCV 79.6 (78-100) fl MCH 25.2 L (26-32) pg MCHC 31.7 L (32-36) g/dl RDW 18.3 H (11.5-14.0) % Plt Count 357 (150-450) K/mm3 MPV 10.1 (7.5-11.0) fl Gran % 71.1 H (36.0-66.0) % Eos # (Auto) 0.14 (0-0.5) Absolute Lymphs (auto) 1.86 (1.0-4.6) Absolute Monos (auto) 0.90 (0.0-1.3) Lymphocytes % 18.4 L (24.0-44.0) % Monocytes % 8.9 (0.0-12.0) % Eosinophils % 1.4 (0.00-5.0) % Basophils % 0.2 (0.0-0.4) % Absolute Granulocytes 7.18 H (1.4-6.9) Basophils # 0.02 (0-0.4) Sodium 142 (137-145) mmol/L Potassium 4.2 (3.5-5.1) mmol/L Chloride 106 (98-107) mmol/L Carbon Dioxide 24 (22-30) mmol/L Anion Gap 16.5 H (5-15) MEQ/L BUN 25 H (9-20) mg/dL Creatinine 1.50 H (0.66-1.25) mg/dL Estimated GFR 49.3 ML/MIN Glucose 98 (74-106) mg/dL POC Glucometer 113 H (74 to 106) mg/dL Lactic Acid (0.4-2.0) Calcium 9.7 (8.4-10.2) mg/dL Magnesium 2.1 (1.6-2.3) mg/dL Total Bilirubin 0.60 (0.2-1.3) mg/dL AST 24 (17-59) U/L ALT 22 (0-50) U/L Alkaline Phosphatase 86 (38-126) U/L Troponin I (0.000-0.034) ng/mL Serum Total Protein 6.8 (6.3-8.2) g/dL Albumin 4.0 (3.5-5.0) g/dL Urine Color (YELLOW) Urine Appearance (CLEAR) Urine pH (5-6) Ur Specific [place] (1.005-1.025) Urine Protein (Negative) Urine Ketones (NEGATIVE) Urine Blood (0-5) Francisco/ul Urine Nitrite (NEGATIVE) Urine Bilirubin (NEGATIVE) Urine Urobilinogen (0-1) mg/dL Ur Leukocyte Esterase (NEGATIVE) Urine RBC (Auto) (0-2) /HPF Urine Culture Reflexed (NO) Urine Glucose (NEGATIVE) mg/dL SARS-CoV-2 (PCR) (NEGATIVE) - Progress Progress: improved, re-examined Progress Note: 06/03/21 16:33 70 years old is evaluated for sudden onset lightheadedness with sweating and feeling of as if he was going to pass out. Patient has nonfocal neuro exam on presentation to ER. Negative orthostatics. Blood sugar 113. Given fluid bolus. EKG showed sinus rhythm with no acute ST elevations. Negative initial troponins. Grossly unremarkable chemistries. Has a lactate of 2.5. Obtain CT head which is negative for any acute findings. Negative chest x-ray for any acute cardiopulmonary abnormality. It could be related to hypoglycemia which got corrected. Patient needs to be observed, discussed with Dr. Gomez and patient is accepted for admission. Discussed with : Benedicto Will see patient in: hospital (observation) Counseled pt/family regarding: lab results, diagnosis, rad results - Departure Departure Disposition: Observation Condition: Good Critical Care Time: No
[2021-06-03] MEDS ORDERED: Sodium Chloride 0.9% 1000 ML 1,000 ML ONE (15:21)
[2021-06-03 15:36] LABS: Absolute Neutrophil Ct (ANC) 7.18 (1.4-6.9); BASOPHIL % 0.2 % (0.0-0.4); Basophil (Absolute #) 0.02 (0-0.4); Eosinophil % 1.4 % (0.00-5.0); Eosinophil (Absolute #) 0.14 (0-0.5); Hematocrit 42.6 % (42-50); Hemoglobin 13.5 gm/dl (12.5-18.0); Lymphocyte (Absolute #) 1.86 (1.0-4.6); Lymphocytes % 18.4 % (24.0-44.0); Mean Cell Volume 79.6 fl (78-100); Mean Corpuscular Hemoglobin 25.2 pg (26-32); Mean Corpuscular Hgb Concent. 31.7 g/dl (32-36); Mean Platelet Volume 10.1 fl (7.5-11.0); Monocytes % 8.9 % (0.0-12.0); Neutrophil % 71.1 % (36.0-66.0); Platelet Count 357 K/mm3 (150-450); Red Blood Count 5.35 M/mm3 (4.1-5.6); Red Cell Distribution Width 18.3 % (11.5-14.0); White Blood Count 10.1 K/mm3 (4.0-10.5)
--- NOTE | 2021-06-03 15:42 | XRAY ---
Exam: AP upright portable chest film from 06/03/2021. Comparison: AP and lateral chest films from 01/12/2018. Indication: 70-year-old male with dizziness. Findings: The transverse heart size appears within normal limits. The zarina and mediastinal structures appear intact. The lungs are slightly hypoinflated. However, no infiltrates, vascular congestion, pneumothorax, or pleural fluid is seen. Prior obliquely oriented discoid atelectasis at the left lung base on 01/12/2018 has resolved. There is a subtle curvilinear density overlying the superior cortex of the posterior right eighth rib of unclear etiology. I am not given any history of prior surgery. Correlate clinically. No acute osseous process is seen. Some lateral osteophyte formation is seen within the thoracic spine. Orthopedic hardware is partially seen overlying the right humeral head. Impression: 1. Mildly hypoinflated chest revealing no acute cardiopulmonary disease. See above.
--- NOTE | 2021-06-03 15:50 | XRAY ---
Exam: CT of the head without IV contrast from 06/03/2021. CTDI: 53.92 mGy Comparison: CT of the head without IV contrast from 01/18/2017. Indication: 70-year-old male with dizziness and lightheadedness which started today. Findings: The ventricles and cortical sulci are mildly prominent, but not enlarged. This is consistent with age-appropriate volume loss and represents no significant interval change. No acute intracranial bleed or abnormal extra-axial fluid collection is seen. No focal mass effect or midline shift is seen. The [place] matter-white matter interfaces appear unremarkable. No focal low attenuation infarct is evident. Structures of the posterior fossa appear unremarkable. There is some artifactual streaking from dental amalgam. The paranasal sinuses appear clear without air-fluid levels. The mastoid air cells are clear without effusion. The middle ear cavities appear unremarkable. I note some mild atherosclerotic vascular calcification within both internal carotid artery siphons as well as in both distal vertebral arteries. This is similar to the prior study. Impression: 1. No acute intracranial bleed or other acute brain process is seen, no change from 01/18/2017.
[2021-06-03 16:09] LABS: ANION GAP 16.5 MEQ/L (5-15); BILIRUBIN,TOTAL 0.6 mg/dL (0.2-1.3); Calcium 9.7 mg/dL (8.4-10.2); Creatinine 1 1.5 mg/dL (0.66-1.25); EST GLOMERULAR FILTRATION RATE 49.3 ML/MIN; MAGNESIUM 2.1 mg/dL (1.6-2.3); Potassium 4.2 mmol/L (3.5-5.1); Total Protein 6.8 g/dL (6.3-8.2)
[2021-06-03 17:01] LABS: Appearance CLEAR (CLEAR); Bilirubin NEGATIVE (NEGATIVE); Blood NEGATIVE Ery/ul (0-5); Glucose >=500 mg/dL (NEGATIVE); Ketones NEGATIVE (NEGATIVE); Leukocyte Esterase NEGATIVE (NEGATIVE); Nitrite NEGATIVE (NEGATIVE); Protein,Urine Dip NEGATIVE (Negative); Specific Gravity 1.006 (1.005-1.025); Urobilinogen NEGATIVE mg/dL (0-1)
[2021-06-03] MEDS ORDERED: Sodium Chloride 0.9% W/ 20 mEq KCl/LITER 1,000 ML IV SCH (20:02)
[2021-06-03] MEDS ORDERED: DUONEB 0.5-3 MG/3 ml Neb IH PRN (20:02)
[2021-06-03] MEDS ORDERED: TYLENOL 325 MG PO PRN (20:02)
[2021-06-03] MEDS ORDERED: HUMALOG SQ PRN (20:02)
[2021-06-03] MEDS ORDERED: ZOCOR 20MG PO STA (22:09)
[2021-06-03] MEDS ORDERED: Calcium 500MG W/Vit D Tablet PO STA (22:12)
[2021-06-03] MEDS ORDERED: CLARITIN 10 MG PO STA (22:13)
[2021-06-03] MEDS ORDERED: Lantus Insulin SQ STA ×2 (22:20)
[2021-06-03] MEDS ORDERED: Lopressor 25MG Tab PO ONE (22:23)
[2021-06-03] MEDS ORDERED: OXYCODONE-ACETAMINOPHEN 10-325 PO PRN (22:24)
[2021-06-03] MEDS ORDERED: Flomax 0.4 MG PO STA (22:26)
[2021-06-03] MEDS ORDERED: Flonase NASAL NS STA (22:45)
[2021-06-03] MEDS ORDERED: Sodium Chloride 0.9% W/ 20 mEq KCl/LITER 1,000 ML IV ONE (22:56)
[2021-06-04 03:35] LABS: Absolute Neutrophil Ct (ANC) 6.54 (1.4-6.9); BASOPHIL % 0.3 % (0.0-0.4); Basophil (Absolute #) 0.03 (0-0.4); Eosinophil % 1.9 % (0.00-5.0); Eosinophil (Absolute #) 0.18 (0-0.5); Hematocrit 39.5 % (42-50); Hemoglobin 12.2 gm/dl (12.5-18.0); Lymphocyte (Absolute #) 1.93 (1.0-4.6); Lymphocytes % 20.3 % (24.0-44.0); Mean Cell Volume 80.9 fl (78-100); Mean Corpuscular Hgb Concent. 30.9 g/dl (32-36); Monocyte (Absolute #) 0.85 (0.0-1.3); Monocytes % 8.9 % (0.0-12.0); Neutrophil % 68.6 % (36.0-66.0); Platelet Count 305 K/mm3 (150-450); Red Blood Count 4.88 M/mm3 (4.1-5.6); Red Cell Distribution Width 18.3 % (11.5-14.0); White Blood Count 9.5 K/mm3 (4.0-10.5)
[2021-06-04 03:39] LABS: ALBUMIN 3.4 g/dL (3.5-5.0); ANION GAP 10.9 MEQ/L (5-15); BILIRUBIN,TOTAL 0.3 mg/dL (0.2-1.3); Calcium 9.1 mg/dL (8.4-10.2); Creatinine 1 1.54 mg/dL (0.66-1.25); EST GLOMERULAR FILTRATION RATE 47.8 ML/MIN; Potassium 4.4 mmol/L (3.5-5.1); Total Protein 5.9 g/dL (6.3-8.2)
[2021-06-04] MEDS ORDERED: SYNTHROID 88 MCG PO ONE (06:00)
--- NOTE | 2021-06-04 07:24 | PCM.SSS ---
History of Present Illness - Chief Complaint Chief Complaint: gen weakness History of Present Illness: is a 70 year old male who developed dizziness and lightheadedness while waiting in the hospital lobby for a hip injection yesterday. he felt like his sugar was low, he was sweating and felt cold and clammy and nauseated. he did not have any chest pain or lightheadedness, his symptoms resolved with fluids in the ER and he has no complaints today, has been up to the restroom several times since admission without incident. - Review of Systems Constitutional: No Symptoms Respiratory: No Cough, No Short Of Breath Cardiac: No Chest Pain, No Edema, No Syncope Abdominal/Gastrointestinal: No Abdominal Pain, No Nausea, No Vomiting, No Diarrhea Genitourinary Symptoms: No Dysuria All Other Systems: Reviewed and Negative Medications & Allergies Home Medications: Home Medication List Atorvastatin Calcium [Lipitor] 80 mg PO HS 09/23/15 [History Confirmed 06/03/21] Furosemide [Lasix] 20 mg PO DAILY 09/23/15 [History Confirmed 06/03/21] Metformin HCl 1000 mg [Glucophage 1000 MG] 500 mg PO BID 09/23/15 [History Confirmed 06/03/21] Pantoprazole Sodium [Protonix] 40 mg PO HS 09/23/15 [History Confirmed 06/03/21] Tamsulosin HCl 0.4 mg [Flomax 0.4 MG] 0.4 mg PO BID 09/23/15 [History Confirmed 06/03/21] lisinopriL [Zestril] 2.5 mg PO DAILY 09/23/15 [History Confirmed 06/03/21] Aspirin 81 mg PO DAILY 02/13/20 [History Confirmed 06/03/21] Calcium Carbonate/Vitamin D3 [Oyster Shell Calcium + D Tab] 1 each PO BID 02/13/20 [History Confirmed 06/03/21] Cetirizine HCl 10 mg PO HS 02/13/20 [History Confirmed 06/03/21] Empagliflozin [Jardiance] 25 mg PO HS 02/13/20 [History Confirmed 06/03/21] Ferrous Sulfate 325 mg PO BID 02/13/20 [History Confirmed 06/03/21] Fluticasone Propionate [Flonase Allergy Relief] 9.9 ml NS BID 02/13/20 [History Confirmed 06/03/21] Insulin Aspart Prot/Insuln Asp [Novolog Mix 70-30 Flexpen] 20 unit SQ TIDWMEALS 02/13/20 [History Confirmed 06/03/21] Insulin Detemir [Levemir] 40 unit SQ HS 02/13/20 [History Confirmed 06/03/21] Levothyroxine Sodium 88 Mcg [Synthroid 88 Mcg] 100 mcg PO DAILY 02/13/20 [History Confirmed 06/03/21] Metoprolol Tartrate 25 mg PO BID 02/13/20 [History Confirmed 06/03/21] Cholecalciferol (Vitamin D3) [Vitamin D3] 50 mcg PO DAILY 02/20/20 [History Confirmed 06/03/21] Cyanocobalamin (Vitamin B-12) [Vitamin B12] 2,500 mcg PO DAILY 02/20/20 [History Confirmed 06/03/21] Oxycodone / APAP 10/325 mg [Oxycodone-Acetaminophen 10-325] 1 each PO DAILY PRN PRN 06/03/21 [History Confirmed 06/03/21] Allergies/Adverse Reactions: Allergies Allergy/AdvReac Type Severity Reaction Status Date / Time morphine Allergy Verified 06/03/21 14:44 adhesive tape AdvReac Intermediate Blisters Verified 06/03/21 14:44 - Past Medical History Past Medical History: Yes Neurological History: No Pertinent History ENT History: No Pertinent History Cardiac History: Arrhythmia, High Cholesterol, Hypertension Respiratory History: No Pertinent History Endocrine Medical History: Diabetes Type II, Hypothyroidism Musculoskelatal History: Arthritis GI Medical History: GERD History: No Pertinent History Pyscho-Social History: No Pertinent History Male Reproductive Disorders: Prostate Cancer Comment: Left hip replacement 2017 - Past Surgical History Past Surgical History: Yes Neuro Surgical History: No Pertinent History Cardiac History: No Pertinent History Respiratory Surgery: No Pertinent History GI Surgical History: Appendectomy Genitourinary Surgical Hx: No Pertinent History Musculskeletal Surgical Hx: Orthopedic Surgery Male Surgical History: No Pertinent History Other Surgical History: Right arm tumor removal. L finger surgery - Social History Smoking Status: Never smoker Exposure to second hand smoke: No Alcohol: None Drug Use: none Significant Family History: no pertinent family hx - Physical Exam Vital Signs: Vital Signs - 24 hr Temp Pulse Resp BP Pulse Ox 06/04/21 04:00 19 06/04/21 03:59 97.8 F 68 19 115/59 96 06/04/21 00:00 97.9 F 79 18 113/55 96 06/03/21 23:25 18 06/03/21 20:35 82 18 97 06/03/21 20:12 97.6 F 81 18 145/66 100 06/03/21 19:00 71 18 131/60 99 06/03/21 18:00 69 18 112/67 99 06/03/21 16:50 97.8 F 78 20 112/56 98 06/03/21 16:37 95 06/03/21 14:33 78 23 117/71 95 General Appearance: no apparent distress, alert Neurologic Exam: alert, oriented x 3, cooperative, normal mood/affect, nml cerebellar function, nml station & gait, sensation nml, No motor deficits Respiratory Exam: normal breath sounds, lungs clear, No respiratory distress Cardiovascular Exam: regular rate/rhythm, normal heart sounds, normal peripheral pulses Gastrointestinal/Abdomen Exam: soft, normal bowel sounds, No tenderness, No mass Extremity Exam: normal inspection, normal range of motion, pelvis stable Skin Exam: normal color, warm, dry, No rash Results - Labs Lab/Micro Results: Lab Results-Last 24 Hours 06/03/21 06/03/21 06/03/21 Range/Units 14:32 14:45 14:45 WBC 10.1 (4.0-10.5) K/mm3 RBC 5.35 (4.1-5.6) M/mm3 Hgb 13.5 (12.5-18.0) gm/dl Hct 42.6 (42-50) % MCV 79.6 (78-100) fl MCH 25.2 L (26-32) pg MCHC 31.7 L (32-36) g/dl RDW 18.3 H (11.5-14.0) % Plt Count 357 (150-450) K/mm3 MPV 10.1 (7.5-11.0) fl Gran % 71.1 H (36.0-66.0) % Eos # (Auto) 0.14 (0-0.5) Absolute Lymphs (auto) 1.86 (1.0-4.6) Absolute Monos (auto) 0.90 (0.0-1.3) Lymphocytes % 18.4 L (24.0-44.0) % Monocytes % 8.9 (0.0-12.0) % Eosinophils % 1.4 (0.00-5.0) % Basophils % 0.2 (0.0-0.4) % Absolute Granulocytes 7.18 H (1.4-6.9) Basophils # 0.02 (0-0.4) Sodium 142 (137-145) mmol/L Potassium 4.2 (3.5-5.1) mmol/L Chloride 106 (98-107) mmol/L Carbon Dioxide 24 (22-30) mmol/L Anion Gap 16.5 H (5-15) MEQ/L BUN 25 H (9-20) mg/dL Creatinine 1.50 H (0.66-1.25) mg/dL Estimated GFR 49.3 ML/MIN Glucose 98 (74-106) mg/dL POC Glucometer 113 H (74 to 106) mg/dL Lactic Acid (0.4-2.0) Calcium 9.7 (8.4-10.2) mg/dL Magnesium 2.1 (1.6-2.3) mg/dL Total Bilirubin 0.60 (0.2-1.3) mg/dL AST 24 (17-59) U/L ALT 22 (0-50) U/L Alkaline Phosphatase 86 (38-126) U/L Troponin I (0.000-0.034) ng/mL Serum Total Protein 6.8 (6.3-8.2) g/dL Albumin 4.0 (3.5-5.0) g/dL Urine Color (YELLOW) Urine Appearance (CLEAR) Urine pH (5-6) Ur Specific [place] (1.005-1.025) Urine Protein (Negative) Urine Ketones (NEGATIVE) Urine Blood (0-5) Francisco/ul Urine Nitrite (NEGATIVE) Urine Bilirubin (NEGATIVE) Urine Urobilinogen (0-1) mg/dL Ur Leukocyte Esterase (NEGATIVE) Urine RBC (Auto) (0-2) /HPF Urine Culture Reflexed (NO) Urine Glucose (NEGATIVE) mg/dL SARS-CoV-2 (PCR) (NEGATIVE) 06/03/21 06/03/21 06/03/21 Range/Units 14:51 16:15 16:48 WBC (4.0-10.5) K/mm3 RBC (4.1-5.6) M/mm3 Hgb (12.5-18.0) gm/dl Hct (42-50) % MCV (78-100) fl MCH (26-32) pg MCHC (32-36) g/dl RDW (11.5-14.0) % Plt Count (150-450) K/mm3 MPV (7.5-11.0) fl Gran % (36.0-66.0) % Eos # (Auto) (0-0.5) Absolute Lymphs (auto) (1.0-4.6) Absolute Monos (auto) (0.0-1.3) Lymphocytes % (24.0-44.0) % Monocytes % (0.0-12.0) % Eosinophils % (0.00-5.0) % Basophils % (0.0-0.4) % Absolute Granulocytes (1.4-6.9) Basophils # (0-0.4) Sodium (137-145) mmol/L Potassium (3.5-5.1) mmol/L Chloride (98-107) mmol/L Carbon Dioxide (22-30) mmol/L Anion Gap (5-15) MEQ/L BUN (9-20) mg/dL Creatinine (0.66-1.25) mg/dL Estimated GFR ML/MIN Glucose (74-106) mg/dL POC Glucometer (74 to 106) mg/dL Lactic Acid 2.5 H (0.4-2.0) Calcium (8.4-10.2) mg/dL Magnesium (1.6-2.3) mg/dL Total Bilirubin (0.2-1.3) mg/dL AST (17-59) U/L ALT (0-50) U/L Alkaline Phosphatase (38-126) U/L Troponin I 0.018 (0.000-0.034) ng/mL Serum Total Protein (6.3-8.2) g/dL Albumin (3.5-5.0) g/dL Urine Color STRAW (YELLOW) Urine Appearance CLEAR (CLEAR) Urine pH 5.0 (5-6) Ur Specific [place] 1.006 (1.005-1.025) Urine Protein NEGATIVE (Negative) Urine Ketones NEGATIVE (NEGATIVE) Urine Blood NEGATIVE (0-5) Francisco/ul Urine Nitrite NEGATIVE (NEGATIVE) Urine Bilirubin NEGATIVE (NEGATIVE) Urine Urobilinogen NEGATIVE (0-1) mg/dL Ur Leukocyte Esterase NEGATIVE (NEGATIVE) Urine RBC (Auto) NONE (0-2) /HPF Urine Culture Reflexed NO (NO) Urine Glucose >=500 (NEGATIVE) mg/dL SARS-CoV-2 (PCR) (NEGATIVE) 06/03/21 06/03/21 06/03/21 Range/Units 17:08 17:48 18:06 WBC (4.0-10.5) K/mm3 RBC (4.1-5.6) M/mm3 Hgb (12.5-18.0) gm/dl Hct (42-50) % MCV (78-100) fl MCH (26-32) pg MCHC (32-36) g/dl RDW (11.5-14.0) % Plt Count (150-450) K/mm3 MPV (7.5-11.0) fl Gran % (36.0-66.0) % Eos # (Auto) (0-0.5) Absolute Lymphs (auto) (1.0-4.6) Absolute Monos (auto) (0.0-1.3) Lymphocytes % (24.0-44.0) % Monocytes % (0.0-12.0) % Eosinophils % (0.00-5.0) % Basophils % (0.0-0.4) % Absolute Granulocytes (1.4-6.9) Basophils # (0-0.4) Sodium (137-145) mmol/L Potassium (3.5-5.1) mmol/L Chloride (98-107) mmol/L Carbon Dioxide (22-30) mmol/L Anion Gap (5-15) MEQ/L BUN (9-20) mg/dL Creatinine (0.66-1.25) mg/dL Estimated GFR ML/MIN Glucose (74-106) mg/dL POC Glucometer (74 to 106) mg/dL Lactic Acid 1.6 (0.4-2.0) Calcium (8.4-10.2) mg/dL Magnesium (1.6-2.3) mg/dL Total Bilirubin (0.2-1.3) mg/dL AST (17-59) U/L ALT (0-50) U/L Alkaline Phosphatase (38-126) U/L Troponin I 0.026 (0.000-0.034) ng/mL Serum Total Protein (6.3-8.2) g/dL Albumin (3.5-5.0) g/dL Urine Color (YELLOW) Urine Appearance (CLEAR) Urine pH (5-6) Ur Specific [place] (1.005-1.025) Urine Protein (Negative) Urine Ketones (NEGATIVE) Urine Blood (0-5) Francisco/ul Urine Nitrite (NEGATIVE) Urine Bilirubin (NEGATIVE) Urine Urobilinogen (0-1) mg/dL Ur Leukocyte Esterase (NEGATIVE) Urine RBC (Auto) (0-2) /HPF Urine Culture Reflexed (NO) Urine Glucose (NEGATIVE) mg/dL SARS-CoV-2 (PCR) NEGATIVE (NEGATIVE) 06/03/21 06/03/21 06/04/21 Range/Units 20:39 21:02 00:21 WBC (4.0-10.5) K/mm3 RBC (4.1-5.6) M/mm3 Hgb (12.5-18.0) gm/dl Hct (42-50) % MCV (78-100) fl MCH (26-32) pg MCHC (32-36) g/dl RDW (11.5-14.0) % Plt Count (150-450) K/mm3 MPV (7.5-11.0) fl Gran % (36.0-66.0) % Eos # (Auto) (0-0.5) Absolute Lymphs (auto) (1.0-4.6) Absolute Monos (auto) (0.0-1.3) Lymphocytes % (24.0-44.0) % Monocytes % (0.0-12.0) % Eosinophils % (0.00-5.0) % Basophils % (0.0-0.4) % Absolute Granulocytes (1.4-6.9) Basophils # (0-0.4) Sodium (137-145) mmol/L Potassium (3.5-5.1) mmol/L Chloride (98-107) mmol/L Carbon Dioxide (22-30) mmol/L Anion Gap (5-15) MEQ/L BUN (9-20) mg/dL Creatinine (0.66-1.25) mg/dL Estimated GFR ML/MIN Glucose (74-106) mg/dL POC Glucometer 146 H (74 to 106) mg/dL Lactic Acid (0.4-2.0) Calcium (8.4-10.2) mg/dL Magnesium (1.6-2.3) mg/dL Total Bilirubin (0.2-1.3) mg/dL AST (17-59) U/L ALT (0-50) U/L Alkaline Phosphatase (38-126) U/L Troponin I 0.024 0.017 (0.000-0.034) ng/mL Serum Total Protein (6.3-8.2) g/dL Albumin (3.5-5.0) g/dL Urine Color (YELLOW) Urine Appearance (CLEAR) Urine pH (5-6) Ur Specific [place] (1.005-1.025) Urine Protein (Negative) Urine Ketones (NEGATIVE) Urine Blood (0-5) Francisco/ul Urine Nitrite (NEGATIVE) Urine Bilirubin (NEGATIVE) Urine Urobilinogen (0-1) mg/dL Ur Leukocyte Esterase (NEGATIVE) Urine RBC (Auto) (0-2) /HPF Urine Culture Reflexed (NO) Urine Glucose (NEGATIVE) mg/dL SARS-CoV-2 (PCR) (NEGATIVE) 06/04/21 06/04/21 06/04/21 Range/Units 03:35 03:35 03:35 WBC 9.5 (4.0-10.5) K/mm3 RBC 4.88 (4.1-5.6) M/mm3 Hgb 12.2 L (12.5-18.0) gm/dl Hct 39.5 L (42-50) % MCV 80.9 (78-100) fl MCH 25.0 L (26-32) pg MCHC 30.9 L (32-36) g/dl RDW 18.3 H (11.5-14.0) % Plt Count 305 (150-450) K/mm3 MPV 10.0 (7.5-11.0) fl Gran % 68.6 H (36.0-66.0) % Eos # (Auto) 0.18 (0-0.5) Absolute Lymphs (auto) 1.93 (1.0-4.6) Absolute Monos (auto) 0.85 (0.0-1.3) Lymphocytes % 20.3 L (24.0-44.0) % Monocytes % 8.9 (0.0-12.0) % Eosinophils % 1.9 (0.00-5.0) % Basophils % 0.3 (0.0-0.4) % Absolute Granulocytes 6.54 (1.4-6.9) Basophils # 0.03 (0-0.4) Sodium 139 (137-145) mmol/L Potassium 4.4 (3.5-5.1) mmol/L Chloride 107 (98-107) mmol/L Carbon Dioxide 25 (22-30) mmol/L Anion Gap 10.9 (5-15) MEQ/L BUN 28 H (9-20) mg/dL Creatinine 1.54 H (0.66-1.25) mg/dL Estimated GFR 47.8 ML/MIN Glucose 120 H (74-106) mg/dL POC Glucometer (74 to 106) mg/dL Lactic Acid (0.4-2.0) Calcium 9.1 (8.4-10.2) mg/dL Magnesium (1.6-2.3) mg/dL Total Bilirubin 0.30 (0.2-1.3) mg/dL AST 20 (17-59) U/L ALT 20 (0-50) U/L Alkaline Phosphatase 74 (38-126) U/L Troponin I 0.014 (0.000-0.034) ng/mL Serum Total Protein 5.9 L (6.3-8.2) g/dL Albumin 3.4 L (3.5-5.0) g/dL Urine Color (YELLOW) Urine Appearance (CLEAR) Urine pH (5-6) Ur Specific [place] (1.005-1.025) Urine Protein (Negative) Urine Ketones (NEGATIVE) Urine Blood (0-5) Francisco/ul Urine Nitrite (NEGATIVE) Urine Bilirubin (NEGATIVE) Urine Urobilinogen (0-1) mg/dL Ur Leukocyte Esterase (NEGATIVE) Urine RBC (Auto) (0-2) /HPF Urine Culture Reflexed (NO) Urine Glucose (NEGATIVE) mg/dL SARS-CoV-2 (PCR) (NEGATIVE) 06/04/21 Range/Units 07:19 WBC (4.0-10.5) K/mm3 RBC (4.1-5.6) M/mm3 Hgb (12.5-18.0) gm/dl Hct (42-50) % MCV (78-100) fl MCH (26-32) pg MCHC (32-36) g/dl RDW (11.5-14.0) % Plt Count (150-450) K/mm3 MPV (7.5-11.0) fl Gran % (36.0-66.0) % Eos # (Auto) (0-0.5) Absolute Lymphs (auto) (1.0-4.6) Absolute Monos (auto) (0.0-1.3) Lymphocytes % (24.0-44.0) % Monocytes % (0.0-12.0) % Eosinophils % (0.00-5.0) % Basophils % (0.0-0.4) % Absolute Granulocytes (1.4-6.9) Basophils # (0-0.4) Sodium (137-145) mmol/L Potassium (3.5-5.1) mmol/L Chloride (98-107) mmol/L Carbon Dioxide (22-30) mmol/L Anion Gap (5-15) MEQ/L BUN (9-20) mg/dL Creatinine (0.66-1.25) mg/dL Estimated GFR ML/MIN Glucose (74-106) mg/dL POC Glucometer 150 H (74 to 106) mg/dL Lactic Acid (0.4-2.0) Calcium (8.4-10.2) mg/dL Magnesium (1.6-2.3) mg/dL Total Bilirubin (0.2-1.3) mg/dL AST (17-59) U/L ALT (0-50) U/L Alkaline Phosphatase (38-126) U/L Troponin I (0.000-0.034) ng/mL Serum Total Protein (6.3-8.2) g/dL Albumin (3.5-5.0) g/dL Urine Color (YELLOW) Urine Appearance (CLEAR) Urine pH (5-6) Ur Specific [place] (1.005-1.025) Urine Protein (Negative) Urine Ketones (NEGATIVE) Urine Blood (0-5) Francisco/ul Urine Nitrite (NEGATIVE) Urine Bilirubin (NEGATIVE) Urine Urobilinogen (0-1) mg/dL Ur Leukocyte Esterase (NEGATIVE) Urine RBC (Auto) (0-2) /HPF Urine Culture Reflexed (NO) Urine Glucose (NEGATIVE) mg/dL SARS-CoV-2 (PCR) (NEGATIVE) Accuchecks Date 06/03/21 Time 22:00 - Radiology Impressions Radiology Exams & Impressions: Radiology Procedures Category Date Time Status CHEST 1 VIEW (PORTABLE) Stat Exams 06/03/21 14:52 Completed HEAD WITHOUT CONTRAST [CT] Stat Exams 06/03/21 14:52 Completed Assessment/Plan (1) Near syncope Current Visit: Yes Status: Acute (2) Diabetes type 2, controlled Current Visit: Yes Status: Acute Code(s): E11.9 - TYPE 2 DIABETES MELLITUS WITHOUT COMPLICATIONS Hospital Summary - Vitals & Intake/Output Vital Signs: Vital Signs Temperature 97.8 F 06/04/21 03:59 Pulse Rate 68 06/04/21 03:59 Respiratory Rate 19 06/04/21 04:00 Blood Pressure 115/59 06/04/21 03:59 O2 Sat by Pulse Oximetry 96 06/04/21 03:59 Intake & Output: Intake & Output 06/01/21 06/02/21 06/03/21 06/04/21 11:59 11:59 11:59 11:59 Intake Total 1804 Balance 1804 Weight 89.5 kg - Lab Result Diagrams: 06/04/21 03:35 06/04/21 03:35 Lab Results-Last 24 Hrs: Lab Results-Last 24 Hours 06/03/21 06/03/21 06/03/21 Range/Units 14:32 14:45 14:45 WBC 10.1 (4.0-10.5) K/mm3 RBC 5.35 (4.1-5.6) M/mm3 Hgb 13.5 (12.5-18.0) gm/dl Hct 42.6 (42-50) % MCV 79.6 (78-100) fl MCH 25.2 L (26-32) pg MCHC 31.7 L (32-36) g/dl RDW 18.3 H (11.5-14.0) % Plt Count 357 (150-450) K/mm3 MPV 10.1 (7.5-11.0) fl Gran % 71.1 H (36.0-66.0) % Eos # (Auto) 0.14 (0-0.5) Absolute Lymphs (auto) 1.86 (1.0-4.6) Absolute Monos (auto) 0.90 (0.0-1.3) Lymphocytes % 18.4 L (24.0-44.0) % Monocytes % 8.9 (0.0-12.0) % Eosinophils % 1.4 (0.00-5.0) % Basophils % 0.2 (0.0-0.4) % Absolute Granulocytes 7.18 H (1.4-6.9) Basophils # 0.02 (0-0.4) Sodium 142 (137-145) mmol/L Potassium 4.2 (3.5-5.1) mmol/L Chloride 106 (98-107) mmol/L Carbon Dioxide 24 (22-30) mmol/L Anion Gap 16.5 H (5-15) MEQ/L BUN 25 H (9-20) mg/dL Creatinine 1.50 H (0.66-1.25) mg/dL Estimated GFR 49.3 ML/MIN Glucose 98 (74-106) mg/dL POC Glucometer 113 H (74 to 106) mg/dL Lactic Acid (0.4-2.0) Calcium 9.7 (8.4-10.2) mg/dL Magnesium 2.1 (1.6-2.3) mg/dL Total Bilirubin 0.60 (0.2-1.3) mg/dL AST 24 (17-59) U/L ALT 22 (0-50) U/L Alkaline Phosphatase 86 (38-126) U/L Troponin I (0.000-0.034) ng/mL Serum Total Protein 6.8 (6.3-8.2) g/dL Albumin 4.0 (3.5-5.0) g/dL Urine Color (YELLOW) Urine Appearance (CLEAR) Urine pH (5-6) Ur Specific [place] (1.005-1.025) Urine Protein (Negative) Urine Ketones (NEGATIVE) Urine Blood (0-5) Francisco/ul Urine Nitrite (NEGATIVE) Urine Bilirubin (NEGATIVE) Urine Urobilinogen (0-1) mg/dL Ur Leukocyte Esterase (NEGATIVE) Urine RBC (Auto) (0-2) /HPF Urine Culture Reflexed (NO) Urine Glucose (NEGATIVE) mg/dL SARS-CoV-2 (PCR) (NEGATIVE) 06/03/21 06/03/21 06/03/21 Range/Units 14:51 16:15 16:48 WBC (4.0-10.5) K/mm3 RBC (4.1-5.6) M/mm3 Hgb (12.5-18.0) gm/dl Hct (42-50) % MCV (78-100) fl MCH (26-32) pg MCHC (32-36) g/dl RDW (11.5-14.0) % Plt Count (150-450) K/mm3 MPV (7.5-11.0) fl Gran % (36.0-66.0) % Eos # (Auto) (0-0.5) Absolute Lymphs (auto) (1.0-4.6) Absolute Monos (auto) (0.0-1.3) Lymphocytes % (24.0-44.0) % Monocytes % (0.0-12.0) % Eosinophils % (0.00-5.0) % Basophils % (0.0-0.4) % Absolute Granulocytes (1.4-6.9) Basophils # (0-0.4) Sodium (137-145) mmol/L Potassium (3.5-5.1) mmol/L Chloride (98-107) mmol/L Carbon Dioxide (22-30) mmol/L Anion Gap (5-15) MEQ/L BUN (9-20) mg/dL Creatinine (0.66-1.25) mg/dL Estimated GFR ML/MIN Glucose (74-106) mg/dL POC Glucometer (74 to 106) mg/dL Lactic Acid 2.5 H (0.4-2.0) Calcium (8.4-10.2) mg/dL Magnesium (1.6-2.3) mg/dL Total Bilirubin (0.2-1.3) mg/dL AST (17-59) U/L ALT (0-50) U/L Alkaline Phosphatase (38-126) U/L Troponin I 0.018 (0.000-0.034) ng/mL Serum Total Protein (6.3-8.2) g/dL Albumin (3.5-5.0) g/dL Urine Color STRAW (YELLOW) Urine Appearance CLEAR (CLEAR) Urine pH 5.0 (5-6) Ur Specific [place] 1.006 (1.005-1.025) Urine Protein NEGATIVE (Negative) Urine Ketones NEGATIVE (NEGATIVE) Urine Blood NEGATIVE (0-5) Francisco/ul Urine Nitrite NEGATIVE (NEGATIVE) Urine Bilirubin NEGATIVE (NEGATIVE) Urine Urobilinogen NEGATIVE (0-1) mg/dL Ur Leukocyte Esterase NEGATIVE (NEGATIVE) Urine RBC (Auto) NONE (0-2) /HPF Urine Culture Reflexed NO (NO) Urine Glucose >=500 (NEGATIVE) mg/dL SARS-CoV-2 (PCR) (NEGATIVE) 06/03/21 06/03/21 06/03/21 Range/Units 17:08 17:48 18:06 WBC (4.0-10.5) K/mm3 RBC (4.1-5.6) M/mm3 Hgb (12.5-18.0) gm/dl Hct (42-50) % MCV (78-100) fl MCH (26-32) pg MCHC (32-36) g/dl RDW (11.5-14.0) % Plt Count (150-450) K/mm3 MPV (7.5-11.0) fl Gran % (36.0-66.0) % Eos # (Auto) (0-0.5) Absolute Lymphs (auto) (1.0-4.6) Absolute Monos (auto) (0.0-1.3) Lymphocytes % (24.0-44.0) % Monocytes % (0.0-12.0) % Eosinophils % (0.00-5.0) % Basophils % (0.0-0.4) % Absolute Granulocytes (1.4-6.9) Basophils # (0-0.4) Sodium (137-145) mmol/L Potassium (3.5-5.1) mmol/L Chloride (98-107) mmol/L Carbon Dioxide (22-30) mmol/L Anion Gap (5-15) MEQ/L BUN (9-20) mg/dL Creatinine (0.66-1.25) mg/dL Estimated GFR ML/MIN Glucose (74-106) mg/dL POC Glucometer (74 to 106) mg/dL Lactic Acid 1.6 (0.4-2.0) Calcium (8.4-10.2) mg/dL Magnesium (1.6-2.3) mg/dL Total Bilirubin (0.2-1.3) mg/dL AST (17-59) U/L ALT (0-50) U/L Alkaline Phosphatase (38-126) U/L Troponin I 0.026 (0.000-0.034) ng/mL Serum Total Protein (6.3-8.2) g/dL Albumin (3.5-5.0) g/dL Urine Color (YELLOW) Urine Appearance (CLEAR) Urine pH (5-6) Ur Specific [place] (1.005-1.025) Urine Protein (Negative) Urine Ketones (NEGATIVE) Urine Blood (0-5) Francisco/ul Urine Nitrite (NEGATIVE) Urine Bilirubin (NEGATIVE) Urine Urobilinogen (0-1) mg/dL Ur Leukocyte Esterase (NEGATIVE) Urine RBC (Auto) (0-2) /HPF Urine Culture Reflexed (NO) Urine Glucose (NEGATIVE) mg/dL SARS-CoV-2 (PCR) NEGATIVE (NEGATIVE) 06/03/21 06/03/21 06/04/21 Range/Units 20:39 21:02 00:21 WBC (4.0-10.5) K/mm3 RBC (4.1-5.6) M/mm3 Hgb (12.5-18.0) gm/dl Hct (42-50) % MCV (78-100) fl MCH (26-32) pg MCHC (32-36) g/dl RDW (11.5-14.0) % Plt Count (150-450) K/mm3 MPV (7.5-11.0) fl Gran % (36.0-66.0) % Eos # (Auto) (0-0.5) Absolute Lymphs (auto) (1.0-4.6) Absolute Monos (auto) (0.0-1.3) Lymphocytes % (24.0-44.0) % Monocytes % (0.0-12.0) % Eosinophils % (0.00-5.0) % Basophils % (0.0-0.4) % Absolute Granulocytes (1.4-6.9) Basophils # (0-0.4) Sodium (137-145) mmol/L Potassium (3.5-5.1) mmol/L Chloride (98-107) mmol/L Carbon Dioxide (22-30) mmol/L Anion Gap (5-15) MEQ/L BUN (9-20) mg/dL Creatinine (0.66-1.25) mg/dL Estimated GFR ML/MIN Glucose (74-106) mg/dL POC Glucometer 146 H (74 to 106) mg/dL Lactic Acid (0.4-2.0) Calcium (8.4-10.2) mg/dL Magnesium (1.6-2.3) mg/dL Total Bilirubin (0.2-1.3) mg/dL AST (17-59) U/L ALT (0-50) U/L Alkaline Phosphatase (38-126) U/L Troponin I 0.024 0.017 (0.000-0.034) ng/mL Serum Total Protein (6.3-8.2) g/dL Albumin (3.5-5.0) g/dL Urine Color (YELLOW) Urine Appearance (CLEAR) Urine pH (5-6) Ur Specific [place] (1.005-1.025) Urine Protein (Negative) Urine Ketones (NEGATIVE) Urine Blood (0-5) Francisco/ul Urine Nitrite (NEGATIVE) Urine Bilirubin (NEGATIVE) Urine Urobilinogen (0-1) mg/dL Ur Leukocyte Esterase (NEGATIVE) Urine RBC (Auto) (0-2) /HPF Urine Culture Reflexed (NO) Urine Glucose (NEGATIVE) mg/dL SARS-CoV-2 (PCR) (NEGATIVE) 06/04/21 06/04/21 06/04/21 Range/Units 03:35 03:35 03:35 WBC 9.5 (4.0-10.5) K/mm3 RBC 4.88 (4.1-5.6) M/mm3 Hgb 12.2 L (12.5-18.0) gm/dl Hct 39.5 L (42-50) % MCV 80.9 (78-100) fl MCH 25.0 L (26-32) pg MCHC 30.9 L (32-36) g/dl RDW 18.3 H (11.5-14.0) % Plt Count 305 (150-450) K/mm3 MPV 10.0 (7.5-11.0) fl Gran % 68.6 H (36.0-66.0) % Eos # (Auto) 0.18 (0-0.5) Absolute Lymphs (auto) 1.93 (1.0-4.6) Absolute Monos (auto) 0.85 (0.0-1.3) Lymphocytes % 20.3 L (24.0-44.0) % Monocytes % 8.9 (0.0-12.0) % Eosinophils % 1.9 (0.00-5.0) % Basophils % 0.3 (0.0-0.4) % Absolute Granulocytes 6.54 (1.4-6.9) Basophils # 0.03 (0-0.4) Sodium 139 (137-145) mmol/L Potassium 4.4 (3.5-5.1) mmol/L Chloride 107 (98-107) mmol/L Carbon Dioxide 25 (22-30) mmol/L Anion Gap 10.9 (5-15) MEQ/L BUN 28 H (9-20) mg/dL Creatinine 1.54 H (0.66-1.25) mg/dL Estimated GFR 47.8 ML/MIN Glucose 120 H (74-106) mg/dL POC Glucometer (74 to 106) mg/dL Lactic Acid (0.4-2.0) Calcium 9.1 (8.4-10.2) mg/dL Magnesium (1.6-2.3) mg/dL Total Bilirubin 0.30 (0.2-1.3) mg/dL AST 20 (17-59) U/L ALT 20 (0-50) U/L Alkaline Phosphatase 74 (38-126) U/L Troponin I 0.014 (0.000-0.034) ng/mL Serum Total Protein 5.9 L (6.3-8.2) g/dL Albumin 3.4 L (3.5-5.0) g/dL Urine Color (YELLOW) Urine Appearance (CLEAR) Urine pH (5-6) Ur Specific [place] (1.005-1.025) Urine Protein (Negative) Urine Ketones (NEGATIVE) Urine Blood (0-5) Francisco/ul Urine Nitrite (NEGATIVE) Urine Bilirubin (NEGATIVE) Urine Urobilinogen (0-1) mg/dL Ur Leukocyte Esterase (NEGATIVE) Urine RBC (Auto) (0-2) /HPF Urine Culture Reflexed (NO) Urine Glucose (NEGATIVE) mg/dL SARS-CoV-2 (PCR) (NEGATIVE) 06/04/21 Range/Units 07:19 WBC (4.0-10.5) K/mm3 RBC (4.1-5.6) M/mm3 Hgb (12.5-18.0) gm/dl Hct (42-50) % MCV (78-100) fl MCH (26-32) pg MCHC (32-36) g/dl RDW (11.5-14.0) % Plt Count (150-450) K/mm3 MPV (7.5-11.0) fl Gran % (36.0-66.0) % Eos # (Auto) (0-0.5) Absolute Lymphs (auto) (1.0-4.6) Absolute Monos (auto) (0.0-1.3) Lymphocytes % (24.0-44.0) % Monocytes % (0.0-12.0) % Eosinophils % (0.00-5.0) % Basophils % (0.0-0.4) % Absolute Granulocytes (1.4-6.9) Basophils # (0-0.4) Sodium (137-145) mmol/L Potassium (3.5-5.1) mmol/L Chloride (98-107) mmol/L Carbon Dioxide (22-30) mmol/L Anion Gap (5-15) MEQ/L BUN (9-20) mg/dL Creatinine (0.66-1.25) mg/dL Estimated GFR ML/MIN Glucose (74-106) mg/dL POC Glucometer 150 H (74 to 106) mg/dL Lactic Acid (0.4-2.0) Calcium (8.4-10.2) mg/dL Magnesium (1.6-2.3) mg/dL Total Bilirubin (0.2-1.3) mg/dL AST (17-59) U/L ALT (0-50) U/L Alkaline Phosphatase (38-126) U/L Troponin I (0.000-0.034) ng/mL Serum Total Protein (6.3-8.2) g/dL Albumin (3.5-5.0) g/dL Urine Color (YELLOW) Urine Appearance (CLEAR) Urine pH (5-6) Ur Specific [place] (1.005-1.025) Urine Protein (Negative) Urine Ketones (NEGATIVE) Urine Blood (0-5) Francisco/ul Urine Nitrite (NEGATIVE) Urine Bilirubin (NEGATIVE) Urine Urobilinogen (0-1) mg/dL Ur Leukocyte Esterase (NEGATIVE) Urine RBC (Auto) (0-2) /HPF Urine Culture Reflexed (NO) Urine Glucose (NEGATIVE) mg/dL SARS-CoV-2 (PCR) (NEGATIVE) Micro Results-Entire Visit: Accuchecks Date 06/03/21 Time 22:00 - Radiology Exams Ordered Rad Exams-Entire Visit: Radiology Procedures Category Date Time Status CHEST 1 VIEW (PORTABLE) Stat Exams 06/03/21 14:52 Completed HEAD WITHOUT CONTRAST [CT] Stat Exams 06/03/21 14:52 Completed - Procedures and Test Procedures and Tests throughout Hospitalization: Therapy Orders & Screens 06/03/21 20:34 Respiratory Therapy Assessment DAILY Comment: Diagnosis: gen weakness - Discharge Disposition: Home, Self-Care Condition: Good Prescriptions: Continue Pantoprazole Sodium [Protonix] 40 mg PO HS Atorvastatin Calcium [Lipitor] 80 mg PO HS lisinopriL [Zestril] 2.5 mg PO DAILY Furosemide [Lasix] 20 mg PO DAILY Tamsulosin HCl 0.4 mg [Flomax 0.4 MG] 0.4 mg PO BID Metformin HCl 1000 mg [Glucophage 1000 MG] 500 mg PO BID Levothyroxine Sodium 88 Mcg [Synthroid 88 Mcg] 100 mcg PO DAILY Calcium Carbonate/Vitamin D3 [Oyster Shell Calcium + D Tab] 1 each PO BID Aspirin 81 mg PO DAILY Fluticasone Propionate [Flonase Allergy Relief] 9.9 ml NS BID Metoprolol Tartrate 25 mg PO BID Ferrous Sulfate 325 mg PO BID Insulin Aspart Prot/Insuln Asp [Novolog Mix 70-30 Flexpen] 20 unit SQ TIDWMEALS Insulin Detemir [Levemir] 40 unit SQ HS Cetirizine HCl 10 mg PO HS Empagliflozin [Jardiance] 25 mg PO HS Cyanocobalamin (Vitamin B-12) [Vitamin B12] 2,500 mcg PO DAILY Cholecalciferol (Vitamin D3) [Vitamin D3] 50 mcg PO DAILY Oxycodone / APAP 10/325 mg [Oxycodone-Acetaminophen 10-325] 1 each PO DAILY PRN PRN PRN Reason: Pain Follow up with: ELVIA TEIXEIRA MD [Primary Care Provider] -
[2021-06-04 07:31] VITALS: BP 123/61; PULSE 62
[2021-06-04] MEDS ORDERED: PROTONIX 40 MG IV IV SCH (10:00)
[2021-06-07 09:44] VITALS: O2SAT 95
== END 2021-06-04 09:08 | disposition home or self-care (01) ==
LOC: ED 14:24 → MED SURG 19:51
PROVIDERS: ADMIT Family Medicine; ATTEND Family Medicine
DX: R55 Syncope and collapse (principal); R42 Dizziness and giddiness; I10 Essential (primary) hypertension; E11.9 Type 2 diabetes mellitus without complications; E78.5 Hyperlipidemia, unspecified; Z79.899 Other long term (current) drug therapy; E03.9 Hypothyroidism, unspecified; R53.1 Weakness; Z20.828 Contact with and (suspected) exposure to other viral communicable diseases
CPT/HCPCS: 36000; 36415; 70450; 71045; 80053; 81001; 82947; 83605; 83735; 84484; 85025; 93005; 93041; 93268; 96360; 99285; G0378; U0003; A9270-GY

== ENCOUNTER 2021-06-10 16:57 | Day surgery (SDC) | payer MEDICARE, OTHER ==
[2021-06-10] MEDS ORDERED: Xylocaine 1% Vial 30 ML PF IJ ONE (16:58)
[2021-06-10] MEDS ORDERED: Depo-Medrol 40 MG/ML IM ONE (16:58)
[2021-06-10] MEDS ORDERED: BUPIVACAINE 0.5% VIAL IJ ONE (16:58)
--- NOTE | 2021-06-10 20:31 | XRAY ---
Indication: Left SI joint injection. Intraoperative fluoroscopy provided for 22 seconds. Single lateral digital spot image submitted for interpretation demonstrates posterior needle tip projecting mid sacrum level. Correlate with intraoperative findings/report.
--- NOTE | 2021-06-11 08:33 | XRAY ---
22 seconds fluoroscopy time in surgery for injection of the left SI joint.
== END 2021-06-10 18:58 | disposition home or self-care (01) ==
LOC: SDC-PAIN 16:57
PROVIDERS: ATTEND Psychiatry & Neurology Pain Medicine
DX: M46.1 Sacroiliitis, not elsewhere classified (principal); E11.9 Type 2 diabetes mellitus without complications; Z79.899 Other long term (current) drug therapy
CPT/HCPCS: 27096; 72020; 77002; 82947; G0260; J1030; J2001

== ENCOUNTER 2021-10-07 08:32 | Day surgery (SDC) | payer MEDICARE, OTHER ==
[2021-10-07] MEDS ORDERED: Depo-Medrol 40 MG/ML IM ONE (08:33)
[2021-10-07] MEDS ORDERED: BUPIVACAINE 0.5% VIAL IJ ONE (08:33)
[2021-10-07] MEDS ORDERED: Lactated Ringers 1,000 ML IV ONE (09:22)
[2021-10-07] MEDS ORDERED: DIPRIVAN 200 MG/20 ML IV ONE (09:49)
--- NOTE | 2021-10-07 10:42 | XRAY ---
Indication: Left greater trochanter bursa injection. Intraoperative fluoroscopy provided for 8 seconds. Single digital spot image obtained prone submitted for interpretation demonstrates needle tip lateral to the left greater trochanter. Small amount of contrast injected for needle tip placement. Correlate with intraoperative findings/report. Incidental incompletely visualized left total hip arthroplasty.
--- NOTE | 2021-10-07 10:42 | XRAY ---
Indication: Left SI joint injection. Intraoperative fluoroscopy provided for 7 seconds. 2 digital spot images submitted for interpretation demonstrate posterior needle tip projecting over the inferior left SI joint. Correlate with intraoperative findings/report. Incidental incompletely visualized left hip prosthesis.
--- NOTE | 2021-10-07 10:44 | XRAY ---
8 seconds fluoroscopy time in surgery for injection of the greater trochanteric bursa of the left hip.
--- NOTE | 2021-10-07 10:44 | XRAY ---
7 seconds fluoroscopy time in surgery for injection of the left SI joint.
== END 2021-10-07 10:15 | disposition home or self-care (01) ==
LOC: SDC-PAIN 08:32
PROVIDERS: ATTEND Psychiatry & Neurology Pain Medicine
DX: M46.1 Sacroiliitis, not elsewhere classified (principal); M16.12 Unilateral primary osteoarthritis, left hip; Z79.891 Long term (current) use of opiate analgesic; E11.8 Type 2 diabetes mellitus with unspecified complications; Z79.4 Long term (current) use of insulin; Z79.84 Long term (current) use of oral hypoglycemic drugs
CPT/HCPCS: 20610; 27096; 72020; 73501; 77002; 82947; G0260; J1030; J2704; Q9966

== ENCOUNTER 2022-08-01 17:11 | Emergency (ER) | payer MEDICARE, OTHER ==
[2022-08-01] MEDS ORDERED: PERCOCET TABLET 5/325MG PO ONE (18:01)
[2022-08-01] MEDS ORDERED: PERCOCET TABLET 5/325MG ONE (18:08)
--- NOTE | 2022-08-01 18:09 | ERPHSYRPT ---
- History of Present Illness Time Seen by Provider: 08/01/22 17:26 Source: patient Exam Limitations: no limitations Patient Subjective Stated Complaint: Pt fell on an uneven sidewalk and injured his right lateral ankle Triage Nursing Assessment: Pt brought to the ER by his sister, hypertensive, rates pain /, right ankle pain with lateral swelling, abrasions to left knee, pt denies hitting head or LOC, denies any other injuries Physician History: 71 years old male presented in the ER after he was walking on the sidewalk with uneven surface and twisted his right ankle leading to fall. This happened around noon time and since then having increasing pain more on the lateral ankle and foot area, more with ambulation and difficulty weightbearing. No injury anywhere else. Method of Injury: twisted Occurred: this afternoon Quality: sharpness Severity of Pain-Max: severe Severity of Pain-Current: moderate Lower Extremities Pain: foot: right, ankle: right Modifying Factors: Improves With: immobilization, pain medication. Worsens With: movement Associated Symptoms: No snapping sensation, No popping sensation Allergies/Adverse Reactions: morphine Allergy (Verified 08/01/22 17:58) unknown reaction adhesive tape Adverse Reaction (Intermediate, Verified 08/01/22 17:58) Blisters Home Medications: Atorvastatin Calcium [Lipitor] 80 mg PO HS 09/23/15 [History] Furosemide [Lasix] 20 mg PO DAILY 09/23/15 [History] Metformin HCl 1000 mg [Glucophage 1000 MG] 1,000 mg PO BID 09/23/15 [History] Pantoprazole Sodium [Protonix] 40 mg PO HS 09/23/15 [History] Tamsulosin HCl 0.4 mg [Flomax 0.4 MG] 0.4 mg PO BID 09/23/15 [History] lisinopriL [Zestril] 2.5 mg PO DAILY 09/23/15 [History] Aspirin 81 mg PO DAILY 02/13/20 [History] Calcium Carbonate/Vitamin D3 [Oyster Shell Calcium + D Tab] 1 each PO BID 02/13/20 [History] Cetirizine HCl 10 mg PO HS 02/13/20 [History] Empagliflozin [Jardiance] 25 mg PO HS 02/13/20 [History] Ferrous Sulfate 325 mg PO UD 02/13/20 [History] Insulin Aspart Prot/Insuln Asp [Novolog Mix 70-30 Flexpen] 25 unit SQ TIDWMEALS 02/13/20 [History] Insulin Detemir [Levemir] 45 unit SQ HS 02/13/20 [History] Levothyroxine Sodium 88 Mcg [Synthroid 88 Mcg] 75 mcg PO DAILY 02/13/20 [History] Metoprolol Tartrate 25 mg PO BID 02/13/20 [History] Cholecalciferol (Vitamin D3) [Vitamin D3] 50 mcg PO DAILY 02/20/20 [History] Cyanocobalamin (Vitamin B-12) [Vitamin B12] 2,500 mcg PO DAILY 02/20/20 [History] Oxycodone / APAP 10/325 mg [Oxycodone-Acetaminophen 10-325] 1 each PO DAILY PRN PRN 06/03/21 [History] Hx Tetanus, Diphtheria Vaccination/Date Given: (unknown) Hx Influenza Vaccination/Date Given: Yes Hx Pneumococcal Vaccination/Date Given: Yes Travel Risk - International Travel Have you traveled outside of the country in past 3 weeks: No - Coronavirus Screening Are you exhibiting any of the following symptoms?: No Close contact with a COVID-19 positive Pt in past 14-21 Days: No - Vaccine Status Have you recieved a Covid-19 vaccination: Yes [employer]: Moderna - Vaccination Dates Date of 2cond Vaccination (if applicable): 01/29/2021 - Review of Systems Constitutional: No Symptoms Ears, Nose, & Throat: No Symptoms Respiratory: No Symptoms Cardiac: No Symptoms Abdominal/Gastrointestinal: No Symptoms Genitourinary Symptoms: No Symptoms Musculoskeletal: Fall, Injury, Joint Pain, Joint Swelling Skin: No Symptoms Neurological: No Symptoms Endocrine: No Symptoms Hematologic/Lymphatic: No Symptoms Immunological/Allergic: No Symptoms - Past Medical History Pertinent Past Medical History: Yes Neurological History: No Pertinent History ENT History: No Pertinent History Cardiac History: Arrhythmia Respiratory History: No Pertinent History Endocrine Medical History: Diabetes Type II, Hypothyroidism Musculoskeletal History: Arthritis GI Medical History: GERD History: No Pertinent History Psycho-Social History: No Pertinent History Male Reproductive Disorders: Prostate Cancer Other Medical History: Left hip replacement 2016, heart "skips beats" - Past Surgical History Past Surgical History: Yes Neuro Surgical History: No Pertinent History Cardiac: No Pertinent History Respiratory: No Pertinent History Gastrointestinal: Appendectomy Genitourinary: No Pertinent History Musculoskeletal: Orthopedic Surgery Male Surgical History: No Pertinent History Other Surgical History: T & A. Right arm tumor removal. L finger surgery - Social History Smoking Status: Never smoker Exposure to second hand smoke: No Drug Use: none Patient Lives Alone: Yes Significant Family History: no pertinent family hx - Nursing Vital Signs Nursing Vital Signs: Initial Vital Signs Temperature 96.8 F 08/01/22 17:46 Pulse Rate 83 08/01/22 17:46 Blood Pressure 155/102 08/01/22 17:46 O2 Sat by Pulse Oximetry 97 08/01/22 17:46 Pain Scale Pain Intensity 0 - Physical Exam General Appearance: no apparent distress, alert Neck Exam: normal inspection, full range of motion Cardiovascular/Respiratory Exam: normal breath sounds, regular rate/rhythm Back Exam: normal inspection, normal range of motion Ankle Exam: right ankle: bone tenderness (Lateral malleolus), limited range of motion, pain, soft tissue tenderness, swelling, left ankle: non-tender, normal inspection, normal range of motion, no evidence of injury Foot Exam: right foot: bone tenderness (Lateral midfoot), pain, soft tissue tenderness, swelling, left foot: non-tender, normal inspection, normal range of motion, no evidence of injury Neuro/Tendon Exam: normal sensation, normal motor functions, normal tendon functions Mental Status Exam: alert, oriented x 3, cooperative Skin Exam: normal color SpO2 Interpretation: normal SpO2: 97 O2 Delivery: Room Air Ordered Tests: Active Orders 24 hr Category Date Time Status ANKLE (3 VIEWS) Stat Exams 08/01/22 18:57 Taken FOOT (MINIMUM 3 VIEWS) Stat Exams 08/01/22 Taken Medication Summary Discontinued Medications Generic Name Dose Route Start Last Admin Trade Name Amy PRN Reason Stop Dose Admin Oxycodone/Acetaminophen 1 tab 08/01/22 18:01 08/01/22 18:08 Oxycodone Hcl/Apap 5 Mg/325 Mg Tablet PO 08/01/22 18:02 1 tab STAT ONE Administration Oxycodone/Acetaminophen Confirm 08/01/22 18:08 Oxycodone Hcl/Apap 5 Mg/325 Mg Tablet Administered 08/01/22 18:09 Dose 1 tab .ROUTE .STK-MED ONE - Progress Progress: improved, pain not gone completely, re-examined Progress Note: 08/01/22 19:11 Is given Percocet for its symptomatic relief, x-ray ankle showed fracture tip of lateral malleolus. No obvious fracture in the foot, x-rays reviewed by me, pending official report. Placed in a posterior splint, walker for ambulation and outpatient podiatry follow-up in the morning. Counseled pt/family regarding: diagnosis, need for follow-up, rad results - Departure Departure Disposition: Home Clinical Impression: Ankle fracture, lateral malleolus, closed, Fall Condition: Stable Critical Care Time: No Referrals: ELVIA TEIXEIRA MD [Primary Care Provider] - Follow Up with PCP/3 days JACOBO MACKEY DPM [ACTIVE STAFF] - Follow up/PCP as directed (Tomorrow for reevaluation) Instructions: Ankle Sprain (DC), Ankle Fracture (DC) Additional Instructions: Take pain medications which you have at home as needed. Keep it elevated, i ntermittent ice application. Use walker for ambulation, nonweightbearing. Follow-up with podiatry for reevaluation tomorrow.
[2022-08-01 19:13] VITALS: O2SAT 97
[2022-08-01 19:14] VITALS: BP 118/99; PULSE 77
--- NOTE | 2022-08-02 19:35 | XRAY ---
Exam: 3 views of the right ankle from 08/01/2022. Comparison: None. Indication: Patient twisted right ankle and fell off edge of sidewalk. Findings: AP, oblique, and lateral images of the right ankle were obtained. There is a transverse avulsion fracture of the distal aspect of the right fibula centered about 1.8 cm distal to the right ankle mortise. There is about 1.5 mm diastasis of the fracture margins. Moderate soft tissue swelling overlies the lateral malleolus. The distal right tibia appears intact. There is mild plantar and posterior calcaneal spurring. I also see moderate arteriosclerotic vascular calcification within the distal right lower leg and right hindfoot. Is this patient diabetic? Impression: 1. Acute transverse avulsion fracture of the distal end of the right fibula with moderate overlying soft tissue swelling. 2. The distal right tibia appears intact. 3. Other incidental findings, as discussed above.
--- NOTE | 2022-08-02 19:39 | XRAY ---
Exam: 3 views of the right foot from 08/01/2022. Comparison: None. Indication: Twisted right ankle and fell off edge of sidewalk. Findings: AP, oblique, and lateral radiographs of the right foot were obtained. I see no acute fracture or dislocation. Extensive arterial sclerotic mass or calcification is evident. Is this patient diabetic? A small accessory bone (os peroneum) is seen adjacent to the tarsal cuboid bone. The tarsals overlying chronically with the metatarsals. There is a relatively high plantar arch. Mild plantar and posterior right calcaneal spurring is seen. Impression: 1. No acute right foot fracture or dislocation. 2. Extensive arteriosclerotic vascular calcification, mild plantar and posterior right calcaneal spurs, and a relatively high plantar arch are seen.
== END 2022-08-01 19:36 | disposition home or self-care (01) ==
LOC: ED 17:11
DX: S82.61XA Displaced fracture of lateral malleolus of right fibula, initial encounter for closed fracture (principal); W01.0XXA Fall on same level from slipping, tripping and stumbling without subsequent striking against object, initial encounter; Y93.01 Activity, walking, marching and hiking; Y92.480 Sidewalk as the place of occurrence of the external cause; M25.571 Pain in right ankle and joints of right foot; E11.9 Type 2 diabetes mellitus without complications; Z79.4 Long term (current) use of insulin; Z79.84 Long term (current) use of oral hypoglycemic drugs; Z79.899 Other long term (current) drug therapy
CPT/HCPCS: 73610; 73630; 99283; A9270-GY

== ENCOUNTER 2023-01-12 08:12 | Day surgery (SDC) | payer MEDICARE, OTHER ==
[2023-01-12] MEDS ORDERED: BUPIVACAINE 0.5% VIAL IJ ONE (08:13)
[2023-01-12] MEDS ORDERED: Depo-Medrol 40 MG/ML IM ONE (08:13)
[2023-01-12] MEDS ORDERED: DIPRIVAN 200 MG/20 ML IV ONE (09:36)
--- NOTE | 2023-01-12 10:17 | XRAY ---
Indication: Left SI joint and left greater trochanter bursa injection. Intraoperative fluoroscopy provided for 20 seconds. 3 digital spot image obtained prone submitted for interpretation demonstrates posterior needle tip projecting over the left SI joint. Second needle tip lateral to the left greater trochanter with small amount of contrast injected for needle tip placement. Correlate with intraoperative findings/report.
--- NOTE | 2023-01-12 11:36 | XRAY ---
20 seconds of fluoroscopy was used in surgery for a left sacroiliac joint and left greater trochanteric bursa injection.
[2023-01-12] MEDS ORDERED: Lactated Ringers 1,000 ML IV ONE (13:53)
== END 2023-01-12 10:00 | disposition home or self-care (01) ==
LOC: SDC-PAIN 08:12
PROVIDERS: ATTEND Psychiatry & Neurology Pain Medicine
DX: M46.1 Sacroiliitis, not elsewhere classified (principal); M16.12 Unilateral primary osteoarthritis, left hip; E11.9 Type 2 diabetes mellitus without complications; Z79.899 Other long term (current) drug therapy
CPT/HCPCS: 01992; 20610; 27096; 73502; 77002; 82947; 99100; G0260; J1030; J2704; Q9966

== ENCOUNTER 2023-10-20 07:54 | Day surgery (SDC) | payer MEDICARE, OTHER ==
[2023-10-20] MEDS ORDERED: XYLOCAINE-MPF 1% 5ML SDV IJ ONE (07:55)
[2023-10-20] MEDS ORDERED: Decadron 4 MG INJ IV ONE (07:55)
[2023-10-20] MEDS ORDERED: DIPRIVAN 200 MG/20 ML IV ONE (09:31)
--- NOTE | 2023-10-20 10:37 | XRAY ---
Indication: Left piriformis injection. Intraoperative fluoroscopy provided for 33 seconds. Single digital spot image submitted for interpretation demonstrates posterior needle tip projecting over left piriformis. Small amount of contrast injected for needle tip placement. Correlate with intraoperative findings/report. Incidental incompletely visualized left hip arthroplasty.
[2023-10-20] MEDS ORDERED: Lactated Ringers 1,000 ML IV ONE (12:03)
--- NOTE | 2023-10-21 10:57 | XRAY ---
33 seconds of fluoroscopy was used in surgery for a left pirifomis injection.
== END 2023-10-20 10:00 | disposition home or self-care (01) ==
LOC: SDC-PAIN 07:54
PROVIDERS: ATTEND Psychiatry & Neurology Pain Medicine
DX: M79.18 Myalgia, other site (principal); E11.9 Type 2 diabetes mellitus without complications
CPT/HCPCS: 20552; 72170; 77002; 82947; 99100; J1100; J2704; Q9966

== ENCOUNTER 2023-11-23 08:38 | Day surgery (SDC) | payer MEDICARE, OTHER ==
[2023-11-23] MEDS ORDERED: BUPIVACAINE 0.5% VIAL IJ ONE (08:39)
[2023-11-23] MEDS ORDERED: Depo-Medrol 40 MG/ML IM ONE (08:39)
[2023-11-23] MEDS ORDERED: Lactated Ringers 1,000 ML IV ONE (10:44)
[2023-11-23] MEDS ORDERED: DIPRIVAN 200 MG/20 ML IV ONE (11:11)
--- NOTE | 2023-11-23 12:32 | XRAY ---
Indication: Left knee injection. Intraoperative fluoroscopy provided for 6 seconds. Single digital spot images submitted for interpretation demonstrates needle tip projecting over left femur intercondylar notch. Small amount of contrast injected for needle tip placement. Correlate with intraoperative findings/report.
--- NOTE | 2023-11-23 12:32 | XRAY ---
6 seconds of fluoroscopy was used in surgery for a left intra-articular knee and pes anserine injection.
== END 2023-11-23 11:35 | disposition home or self-care (01) ==
LOC: SDC-PAIN 08:38
PROVIDERS: ATTEND Psychiatry & Neurology Pain Medicine
DX: M17.12 Unilateral primary osteoarthritis, left knee (principal); E11.9 Type 2 diabetes mellitus without complications
CPT/HCPCS: 20610; 73560; 77002; 82947; J1030; J2704; Q9966

== ENCOUNTER 2024-02-08 07:57 | Day surgery (SDC) | payer MEDICARE ==
[2024-02-08] MEDS ORDERED: BUPIVACAINE 0.5% VIAL IJ ONE (07:58)
[2024-02-08] MEDS ORDERED: Depo-Medrol 40 MG/ML IM ONE (07:58)
[2024-02-08] MEDS ORDERED: DIPRIVAN 200 MG/20 ML IV ONE (09:33)
[2024-02-08] MEDS ORDERED: Ephedrine Sulfate 50 MG/ML ONE (09:40)
[2024-02-08] MEDS ORDERED: Lactated Ringers 1,000 ML IV ONE (10:55)
--- NOTE | 2024-02-08 12:09 | XRAY ---
Indication: Left SI joint and greater trochanter bursa injection. Intraoperative fluoroscopy provided for 27 seconds. 3 digital spot images submitted for interpretation demonstrate posterior needle tip projecting over left SI joint. Second needle tip lateral to left greater tuberosity with small amount of contrast injected for needle tip placement. Correlate with intraoperative findings/report. Incidental incompletely visualized left hip arthroplasty.
--- NOTE | 2024-02-08 13:08 | XRAY ---
27 seconds of fluoroscopy was used in surgery for a left sacroiliac joint and greater trochanteric bursa injection.
== END 2024-02-08 10:08 | disposition home or self-care (01) ==
LOC: SDC-PAIN 07:57
PROVIDERS: ATTEND Psychiatry & Neurology Pain Medicine
DX: M46.1 Sacroiliitis, not elsewhere classified (principal); E11.9 Type 2 diabetes mellitus without complications
CPT/HCPCS: 20610; 27096; 73502; 77002; 82947; 99100; J1030; J2704; Q9966; G0260